=== PATIENT | female | born 1960 | race Caucasian/White ===

== ENCOUNTER 2024-03-25 13:41 | Inpatient (IN) | payer OTHER, SELFPAY ==
[2024-03-25] VITALS (23 sets, daily range): BP systolic 155–220; BP diastolic 56–134; PULSE 62–79; RESP 9–97; TEMP 36.6–37.1; O2SAT 94–100; BMI 28.3
--- NOTE | 2024-03-25 14:04 | XR_ITS ---
Examination: CT brain head without contrast. 2-D sagittal coronal reconstructions Date and time of exam:March 25, 2024 1548 hrs. Indications: Slurred speech onset confusion beginning 4 days ago CTDI: vol (mGy):50.8 DLP: (mGycm):1014 Technique: Multiple CT axial sections of the brain have been obtained, 5 mm slice thickness. Contrast has not been administered. 2-D sagittal, coronal reconstructions have been obtained Low dose protocols were performed. One or more of the following dose reduction techniques were used; automated exposure control, adjustment of the mA and/or KV according to patient size, use of iterative reconstruction technique. Findings: No significant ventricular enlargement. Bilateral small basal ganglia infarcts which may be old but clinical correlation advised Intra-axial or extra-axial hemorrhage density is not seen. No mass effect or midline shift Basal cisterns are not remarkable. Fourth ventricle is midline. Cranial vault intact. Impression: Negative for acute hemorrhage, mass effect or midline shift Bilateral small basal ganglia infarcts which may be old but clinical correlation advised Brain MRI MRA without contrast follow-up would best assess for acute ischemic change
--- NOTE | 2024-03-25 14:05 | EKG_ITS ---
[facility] (Formerly [facility]) Test Date: 2024-03-25 Pat Name: MARQUES SCHMID Department: Room: - Gender: Female Recreational Leader: : 1960 Requested By: Jerod Cote Order Number: [id number] Reading MD: Jerod Cote Measurements Intervals [place] Rate: 66 P: -67 NC: 149 QRS: -34 QRSD: 98 T: 70 QT: 393 QTc: 413 Interpretive Statements SINUS RHYTHM MARKED LEFT AXIS DEVIATION [QRS AXIS < -30] MODERATE VOLTAGE CRITERIA FOR LVH, CONSIDER NORMAL VARIANT [MEETS CRITERIA IN ONE OF: R(aVL), S(V1), R(V5), R(V5/V6)+S(V1)] POSSIBLE ANTERIOR MYOCARDIAL INFARCTION , OF INDETERMINATE AGE [30 ms Q WAVE IN V3/V4, OR R < 0.2 mV IN V4] No previous ECG available for comparison /store/S0/[id number].pdf
--- NOTE | 2024-03-25 14:07 | EDNOTE_ITS ---
ED General RME/HPI General Chief complaint: Altered Mental Status Stated complaint: AMS Time Seen by Provider: 03/25/24 14:01 Arrival date/time: 03/25/24 13:41 RME / HPI RME / HPI narrative: 63-year-old female patient with significant history of hypertension, CVA in the past, was brought in by EMS for evaluation regarding strokelike symptoms. Last well-known time was 4 days ago. Patient friend visited her and was noted to have certain words that are not coming out in her mouth,. Patient denies any headache denies any upper or lower extremity weakness. Patient is ambulatory. Review of Systems Review of Systems Narrative Review of Systems: Review of system reviewed and within normal limits except mentioned in HPI ED Exam Narrative Physical exam: VITAL SIGNS: Reviewed. GENERAL APPEARANCE: Alert and interactive, follows commands, no acute distress, + mild expressive aphasia HEAD AND FACE: Non-traumatic. ENT: PERRL, pink conjunctivitis, eyelid no trauma, Mucous membrane moist. NECK: Supple, nontender, no nuchal rigidity. CHEST: No tenderness, no crepitus, no paradoxical movement, no retractions. LUNGS: Clear, well ventilated, symmetric, no rales, no wheezing, no ronchi, no stridor, good breath sounds bilaterally. HEART: Regular rate, regular rhythm, no murmur, no gallops. ABDOMEN: Soft, positive bowel sounds, nondistended, no guarding, nontender, no rebound, no masses, RECTAL: Deferred. GENITAL: Deferred. NEUROLOGICAL: Gross motor function intact sensory function intact, Appropriate for age. MUSCULOSKELETAL: low back nontender, full range of motion. EXTREMITIES: Nontender, full range of motion. SKIN: Color pink, dry, no rash, no lacerations, no abrasions, no contusions. LYMPHATICS: Deferred. Course Quality Measures none Orders Category Date Time Status Bedside Blood Glucose NOW Care 03/25/24 14:05 Active COVID-19 Screening Questionnaire NOW Care 03/25/24 20:28 Active Neurology Manager NOW Care 03/25/24 14:05 Active Continuous Pulse Oximetry NOW Care 03/25/24 14:05 Completed Decision to Admit X1 Care 03/25/24 20:28 Active EKG (ED ONLY) *Do not use* NOW Care 03/25/24 14:05 Completed In and Out Catheter NEEDED Care 03/25/24 14:05 Active Insert IV NOW Care 03/25/24 14:05 Active NIH Stroke Scale now Care 03/25/24 14:05 Active NPO NOW Care 03/25/24 14:05 Active Nurse Swallow Screen x1 Care 03/25/24 14:05 Active Consult to Neurology / Tele-Neurology Routine Cons 03/25/24 14:05 Active Consult to Neurology / Tele-Neurology Stat Cons 03/25/24 20:[address] head/brain wo con Stat Exams 03/25/24 14:04 Completed EKG (ED Only) Stat Exams 03/25/24 14:05 Draft CBC Stat Lab 03/25/24 14:30 Completed Comprehensive Metabolic Panel Stat Lab 03/25/24 14:30 Completed Drug Screen,Urine Stat Lab 03/25/24 14:05 Ordered Magnesium Stat Lab 03/25/24 14:30 Completed Partial Thromboplastin Time Stat Lab 03/25/24 14:30 Completed Prothrombin Time with INR Stat Lab 03/25/24 14:30 Completed Troponin I Stat Lab 03/25/24 14:30 Completed Urinalysis Stat Lab 03/25/24 14:05 Ordered Urine Culture Stat Lab 03/25/24 14:05 Ordered Aspirin [Ecotrin] Med 03/25/24 20:24 Discontinued 81 mg PO X1 ONE Labetalol IV [Trandate IV] Med 03/25/24 18:43 Discontinued 20 mg IVP X1 ONE Ondansetron Inj [Zofran Inj] Med 03/25/24 14:04 Active 4 mg IV Q4HR PRN Oxygen Delivery NOW RT 03/25/24 14:05 Active Vital Signs Vital signs: Vital Signs Temperature 98.8 F 03/25/24 13:46 Pulse Rate 65 03/25/24 13:46 Respiratory Rate 17 03/25/24 13:46 Blood Pressure 165/74 H 03/25/24 13:46 Pulse Oximetry (%) 98 03/25/24 13:46 Oxygen Delivery Method Nasal Cannula 03/25/24 13:46 Oxygen Flow Rate 2 03/25/24 13:46 [facility] Patient data External records reviewed:: None Clinical information provided by:: patient Social determinants that could affect healthcare access:: none Patient has the following chronic illnesses:: Hypertension diabetes mellitus, CVA How is presenting disease/condition affected by chronic disease/condition?: e xacerbated by Evaluation data The following diagnostics were reviewed and interpreted by me:: lab results, radiology exam(s) and EKG tracing(s) Lab and/or radiology exams considered but not ordered:: None Interpretation Summary: EKG as interpreted by me showed normal sinus rhythm, ventricular rate of 68 bpm, no ST segment elevation depression noted. CT scan of the head showed Negative for acute hemorrhage, mass effect or midline shift Bilateral small basal ganglia infarcts which may be old but clinical correlation advised Brain MRI MRA without contrast follow-up would best assess for acute ischemic change Laboratory couple came back unremarkable. Medications Medications considered but not ordered:: None labetalol IV, aspirin Medication administrations:: Medication Administration History Ondansetron HCl (Ondansetron Inj 2 Mg/Ml Inj 2 Ml) 4 mg IV Q4HR PRN PRN Reason: NAUSEA OR VOMITING Stop: 04/24/24 14:03 Discontinued Medications Aspirin (Aspirin Ec 81 Mg Tabec) 81 mg PO X1 ONE Stop: 03/25/24 20:25 Labetalol HCl (Labetalol Inj 5 Mg/Ml Vial 20 Ml) 20 mg IVP X1 ONE Stop: 03/25/24 18:44 Last Admin: 03/25/24 18:48 Dose: 20 mg Documented By: MIGUEL Labetalol IV, Zofran, aspirin Consultations Consultation(s) initiated? (list below): Yes Consultation #1 (Physician, Specialty, Details): Dr Calhoun, thank you Dr Calhoun Diagnosis Differential Diagnosis ED Complaint MDM: Strokelike symptoms, CVA, expressive aphasia Most likely diagnosis given after review of the tests above:: Strokelike symptoms Admission Indicated Admission indicated?: indicated Explain why admission is indicated or not indicated:: Patient is to be admitted for stroke workup Admission Request Was there a request for admission?: Yes Admission Attestation Admission request attestation: Discussed case with [ Dr Verde] from Hospitalist service regarding admission. Discussed patients ED course, exam findings, labs, and radiology results. The Hospitalist [agrees,] to accept the patient for admission. Disposition Plan Disposition Plan: Admit Medical Decision Making MDM Narrative MDM Narrative: 63-year-old female patient with significant history of hypertension, CVA in the past, was brought in by EMS for evaluation regarding strokelike symptoms. Last well-known time was 4 days ago. Patient friend visited her and was noted to have certain words that are not coming out in her mouth,. Patient denies any headache denies any upper or lower extremity weakness. Patient is ambulatory. Laboratory workup came back unremarkable. CT scan of the head showed Negative for acute hemorrhage, mass effect or midline shift Bilateral small basal ganglia infarcts which may be old but clinical correlation advised Brain MRI MRA without contrast follow-up would best assess for acute ischemic change Plan of care discussed with the patient, who agrees to be admitted for stroke workup. I spoke with Dr Calhoun, neurologist on-call, who recommends aspirin 81 mg x 1 and admission for stroke workup. Differential Diagnosis Differential Diagnosis: Strokelike symptoms, CVA, expressive aphasia Lab Data 03/25/24 14:30 03/25/24 14:30 Labs: Lab Results 03/25/24 Range/Units 14:30 WBC 7.9 (3.6-11.0) Thou/mm3 RBC 3.57 L (4.00-5.20) Miln/mm3 Hgb 9.7 L (12.0-16.0) g/dL Hct 29.7 L (36.0-46.0) % MCV 83 (80-100) fL MCH 27.2 (25.0-35.0) pg MCHC 32.7 (31.0-37.0) g/dl RDW Std Deviation 39.0 (36.4-46.3) fL Plt Count 369 (140-440) Thou/mm3 Neut % (Auto) 81 H (37-80) % Lymph % (Auto) 8 L (10-50) % [place] % (Auto) 6 (0-12) % Eos % (Auto) 4 (0-10) % Baso % (Auto) 1 (0-2.5) % Neut # (Auto) 6.4 (1.8-7.7) Thou/mm3 Lymph # (Auto) 0.6 L (1.0-4.8) Thou/mm3 [place] # (Auto) 0.5 (0.0-0.8) Thou/mm3 Eos # (Auto) 0.3 (0.0-0.5) Thou/mm3 Baso # (Auto) 0.1 (0.0-0.2) Thou/mm3 Immature Gran # (Auto) 0.02 H (0.00-0.00) Thou/mm3 Absolute Nucleated RBC 0.00 (0.00-0.00) Thou/mm3 Immature Gran % 0 (0-0) % Nucleated RBC % 0 (0) /100 WBC PT 11.0 (9.0-12.2) Seconds INR 1.0 (0.9-1.3) APTT 29.1 (22.0-36.0) Seconds Sodium 137 (136-145) mMol/L Potassium 4.4 (3.4-5.1) mMol/L Chloride 103 (98-107) mMol/L Carbon Dioxide 25.7 (20.0-31.0) mMol/L Anion Gap 8 (7-16) BUN 38 H (9-23) mg/dL Creatinine 2.1 H (0.6-1.3) mg/dL Estim Creat Clear Calc Not Performed. eGFR 26 L (60 - ) See Note BUN/Creatinine Ratio 18 (12-20) Ratio Glucose 126 H (74-106) mg/dL Calculated Osmolality 284 (275-295) Calcium 9.6 (8.3-10.6) mg/dL Corrected Calcium 9.6 (8.5-10.1) mg/dL Magnesium 1.8 (1.6-2.6) mg/dL Total Bilirubin 0.5 (0.3-1.2) mg/dL AST 10 (0-34) U/L ALT 10 (10-49) U/L Alkaline Phosphatase 84 (46-116) U/L Troponin I < 0.020 (0.0-0.045) ng/mL Total Protein 7.8 (5.7-8.2) gm/dL Albumin 4.3 (3.4-4.8) gm/dL Globulin 3.5 (2.3-3.5) gm/dL Albumin/Globulin Ratio 1.2 (1.2-2.2) Discharge Plan Prescriptions/Referrals Referrals: No Primary/Family,Physician [Primary Care Provider] - In 1 week Problem List Clinical Impression: CVA (cerebral vascular accident) Patient/Caregiver Discharge Instructions Print Language: Burmese
[2024-03-25 14:46] LABS: Basophils # (Auto) 0.1 Thou/mm3 (0.0-0.2); Basophils % (Auto) 1 % (0-2.5); Eosinophils # (Auto) 0.3 Thou/mm3 (0.0-0.5); Eosinophils % (Auto) 4 % (0-10); Hematocrit 29.7 % (36.0-46.0); Hemoglobin 9.7 g/dL (12.0-16.0); Immature Granulocytes % (Auto) 0 % (0-0); Immature Granulocytes Auto 0.02 Thou/mm3 (0.00-0.00); Lymphocytes # (Auto) 0.6 Thou/mm3 (1.0-4.8); Lymphocytes % (Auto) 8 % (10-50); Mean Corpuscular HGB Conc 32.7 g/dl (31.0-37.0); Mean Corpuscular Hemoglobin 27.2 pg (25.0-35.0); Mean Corpuscular Volume 83 fL (80-100); Monocytes # (Auto) 0.5 Thou/mm3 (0.0-0.8); Monocytes % (Auto) 6 % (0-12); Neutrophils # (Auto) 6.4 Thou/mm3 (1.8-7.7); Neutrophils % (Auto) 81 % (37-80); Nucleated Red Blood Cell % 0 /100 WBC (0); Platelet Count 369 Thou/mm3 (140-440); Red Blood Count 3.57 Miln/mm3 (4.00-5.20); White Blood Count 7.9 Thou/mm3 (3.6-11.0)
[2024-03-25 14:57] LABS: Partial Thromboplastin Time 29.1 Seconds (22.0-36.0)
[2024-03-25 15:13] LABS: Alanine Aminotransferase 10 U/L (10-49); Albumin, Serum 4.3 gm/dL (3.4-4.8); Albumin/Globulin Ratio 1.2 (1.2-2.2); Alkaline Phosphatase 84 U/L (46-116); Anion Gap 8 (7-16); Aspartate Amino Transferase 10 U/L (0-34); BUN/Creatinine Ratio 18 Ratio (12-20); Bilirubin,Total 0.5 mg/dL (0.3-1.2); Blood Urea Nitrogen 38 mg/dL (9-23); Calcium 9.6 mg/dL (8.3-10.6); Calcium (Corrected) 9.6 mg/dL (8.5-10.1); Carbon Dioxide 25.7 mMol/L (20.0-31.0); Chloride 103 mMol/L (98-107); Creatinine (Component) 2.1 mg/dL (0.6-1.3); Globulin 3.5 gm/dL (2.3-3.5); Glucose 126 mg/dL (74-106); Magnesium 1.8 mg/dL (1.6-2.6); Osmolality,Calculated 284 (275-295); Potassium 4.4 mMol/L (3.4-5.1); Sodium 137 mMol/L (136-145); Total Protein 7.8 gm/dL (5.7-8.2); Troponin I < 0.020 ng/mL (0.0-0.045); eGFR 26 See Note
[2024-03-25] MEDS: LABETALOL INJ 5 MG/ML VIAL 20 ML 20 MG IVP (18:48)
[2024-03-25] MEDS: ASPIRIN EC 81 MG TABEC PO (21:07)
[2024-03-25 21:41] LABS: Collection Type, Urine Clean Catch
--- NOTE | 2024-03-25 21:42 | ECHO_ITS ---
Transthoracic Echo Report Ht (in): 65 Wt (lb): 170 Exam Location: Portable Status: Emergency Sales And Marketing Director: Sudha Abraham Indications: Procedure Performed: BP: 150 / 75 HR: 55 Rhythm: Sinus Technical Quality: Fair Contrast: Agitated Saline Total Dose (mL): MEASUREMENTS (Male / Female) Normal Values 2D ECHO LV Diastolic Diameter PLAX 5.2 cm 4.2 - 5.9 / 3.9 - 5.3 cm LV Systolic Diameter PLAX 3.8 cm IVS Diastolic Thickness 0.9 cm 0.6 - 1.0 / 0.6 - 0.9 cm LVPW Diastolic Thickness 1.1 cm 0.6 - 1.0 / 0.6 - 0.9 cm LV Relative Wall Thickness 0.4 LVOT Diameter 1.9 cm LA Volume Index 35.9 cm?/m? 16 - 28 cm?/m? Ascending Aorta Diameter 3.3 cm M-MODE Aortic Root Diameter MM 2.7 cm LA Systolic Diameter MM 3.9 cm LA Ao Ratio MM 1.4 AV Cusp Separation MM 1.8 cm DOPPLER AV Peak Velocity 202.0 cm/s AV Peak Gradient 16.3 mmHg AV Mean Gradient 10.0 mmHg AV Velocity Time Integral 49.2 cm LVOT Peak Velocity 105.0 cm/s LVOT Peak Gradient 4.4 mmHg LVOT Velocity Time Integral 27.0 cm LVOT Cardiac Index 2214.8 cm?/min?m? AV Area Cont Eq vti 1.6 cm? AV Area Cont Eq pk 1.5 cm? MV Peak Velocity 126.0 cm/s MV Peak Gradient 6.4 mmHg MV Mean Velocity 67.9 cm/s MV Mean Gradient 2.0 mmHg MV Area PHT 3.0 cm? MR Peak Velocity 368.0 cm/s MR Peak Gradient 54.2 mmHg Mitral E Point Velocity 103.0 cm/s Mitral A Point Velocity 87.8 cm/s Mitral E to A Ratio 1.2 LV E' Lateral Velocity 4.7 cm/s Mitral E to LV E' Lateral Ratio 22.0 LV E' Septal Velocity 5.0 cm/s Mitral E to LV E' Septal Ratio 20.6 FINDINGS Left Ventricle Mild LV dilatation. Normal wall thickness, systolic function with no obvious regional wall motion abnormalities. The ejection fraction is visually estimated at 50-55%. Right Ventricle The right ventricle is normal in size and systolic function. Left Atrium The left atrium is normal by two-dimensional, color flow and Doppler imaging with no structural abnormalities, no thrombus formation present. Right Atrium The right atrium is normal by two-dimensional imaging, color flow and Doppler imaging with no struct ural abnormalities, no thrombus formation present. Atrial Septum The interatrial septum appears normal with no evidence of a shunt. Aorta The aorta is normal by two-dimensional, color flow and Doppler interrogation. Mitral Valve The mitral valve is mildly MAC. There is mild mitral valve regurgitation. Aortic Valve The aortic valve is trileaflet. Mild sclerosis without stenosis. There is no significant aortic prisca ve regurgitation. Tricuspid Valve The tricuspid valve is normal by two-dimensional, color flow and Doppler interrogation. There is tra ce tricuspid valve regurgitation. Pulmonic Valve There is no significant pulmonic valve regurgitation. Vessels The pulmonary artery appears normal. The inferior vena cava pulmonary and hepatic veins appear aixa l. Pericardium The pericardium is normal by two-dimensional imaging. There is no significant pericardial effusion. CONCLUSIONS Negative bubble study. No evidence of PFO or ASD. Mild Left ventricle dilatation. Normal function. Estimated EF 50-55% Normal RV size and function. Mild MAC. Mild MR Mild AV sclerosis without stenosis Trace TR Sybil Segovia (Electronically Signed) Final Date: 28 March 2024 12:48
--- NOTE | 2024-03-25 21:53 | ESHP_ITS ---
Documentation for date of: 03/25/24 [facility] History of Present Illness History of present illness: The patient is a 63-year-old female with a past medical history of hypertension, diabetes, CVA who presented to the ED from home on 03/25/2024 after about 3 days of jumbled speech. Patient was in her usual state of health once about 3 days ago when she noticed that her words were not coming out right initially attributed to tiredness. However, people around her started noticing similar things and she presented to the ED today as it did not resolve. She denies headache, weakness in any other extremities, loss of sensation or numbness. She does endorse some blurriness in vision and states open told that she had diabetic retinopathy. Patient had a CVA in May, at the time had right-sided deficits and was hospitalized for about 4 days. Due to this, she lost her job and had no insurance and was not able to follow-up with physical therapy or any other doctor appointments in the last 7 months. Patient has not been on any medications in this period of time and only recently after moving getting new insurance new primary care in [place] that started her on medications for hypertension. Her only other complaint is of left neck ulcer that has been present for about 2 years she was recently evaluated for possible biopsy and dermatology referral. ED course: In the ED, patient was afebrile, hypertensive with SBP> 200, saturating 99% on room air. Head CT showed bilateral small basal ganglia infarcts, age indeterminate, recommended to follow-up with MRI/MRA. As her symptoms have been already 4 days, teleneuro was not consulted when the ED neurologist Dr Calhoun was consulted who recommended to start the patient on aspirin 81 mg and admitted for further workup. CBC had a WBC of 7.9 Hgb 9.7 and CMP was significant for BUN of 38 and creatinine 2.1, baseline unknown. Glucose was 126. The patient has been admitted for CVA workup/rule out. PMHx-as above PSHx-Nil Social history- neither smokes nor drinks or uses illicit drugs Review of Systems Review of Systems Narrative Review of Systems: GENERAL: Denies fevers/chills or diaphoresis. HEENT: Denies headache, admits blurriness in vision. Denies nasal discharge. NEURO: Denies unusual weakness or difficulty speaking. CARDIO: Denies chest pain or palpitations. PULM: Denies SOB, coughing, or wheezing. GI: Denies abdominal pain, N/V/C/D/reflux/gas, bright red blood per rectum or melena. Reports having BMs. URO: Denies burning/itching/pain/urinary changes. MSK/EXT/SKIN: Denies joint/skeletal/muscle pain, issues/changes in upper or lower extremities, itchiness, or superficial pain. PSYCH: Cooperative, pleasant mood & affect. Exam Vital Signs Temp Pulse Resp BP Pulse Ox O2 Del Method O2 Flow Rate 97.9 F 73 20 192/97 H 99 Room Air 2 03/25/24 18:18 03/25/24 21:01 03/25/24 21:01 03/25/24 21:01 03/25/24 21:01 03/25/24 18:18 03/25/24 13:46 Narrative Exam GENERAL: AAOX3 NEURO: Strength 5/5 in all extremities, no pronator drift no loss of sensation, proprioception. Reflexes normal, [id number] and [id number] preserved negative Babinski sign, no nystagmus normal gait. HEENT: Moist mucosa. Eyes open, symmetrical, & clear CARDIO: No chest pain on palpation. Heart RRR, no obvious murmurs PULM: No noted coughing/dyspnea. Lungs CTA B/L GI: Abdomen soft, nondistended, no pain on palpation. BSx4 URO/RESEARCH MANAGER:: No further abnormalities noted. SKIN/MSK/EXT: 4 x 6 cm nonhealing ulceration noted in left neck fold, no purulent drainage Results: Labs 03/25/24 14:30 03/25/24 14:30 Labs: Short CBC 03/25/24 Range/Units 14:30 WBC 7.9 (3.6-11.0) Thou/mm3 Hgb 9.7 L (12.0-16.0) g/dL Hct 29.7 L (36.0-46.0) % Plt Count 369 (140-440) Thou/mm3 BMP 03/25/24 14:30 Sodium 137 Potassium 4.4 Chloride 103 Carbon Dioxide 25.7 BUN 38 H Creatinine 2.1 H Glucose 126 H Calcium 9.6 Cardiac Enzymes 03/25/24 Range/Units 14:30 Troponin I < 0.020 (0.0-0.045) ng/mL Liver Function 12/21/24 Range/Units 14:30 Total Bilirubin 0.5 (0.3-1.2) mg/dL AST 10 (0-34) U/L ALT 10 (10-49) U/L Alkaline Phosphatase 84 (46-116) U/L Albumin 4.3 (3.4-4.8) gm/dL Quality Measures Quality Measures none Medications Home Medications and Allergies Home Medications ?Medication ?Instructions ?Recorded ?Confirmed ?Type amlodipine 10 mg tablet mg 03/26/24 History aspirin 81 mg tablet,delayed mg 03/26/24 History release lisinopril 20 mg tablet mg 03/26/24 History metoprolol tartrate 25 mg tablet mg 03/26/24 03/26/24 History Allergies Allergy/AdvReac Type Severity Reaction Status Date / Time No Known Allergies Allergy Verified 03/25/24 21:10 Visit Medications Acetaminophen (Acetaminophen 325 Mg Tablet) 650 mg PO Q6H PRN PRN Reason: Pain 1-3 or Fever >100.3 Stop: 04/24/24 21:37 Amlodipine Besylate (Amlodipine Besylate 5 Mg Tablet) 10 mg PO QDAY [facility] Stop: 04/25/24 08:59 Aspirin (Aspirin Ec 81 Mg Tabec) 81 mg PO QDAY [facility] Stop: 04/25/24 08:59 Sodium Chloride (Ns) 1,000 mls @ 80 mls/hr IV .[id number] ONE Stop: 03/26/24 10:14 Metoprolol Tartrate (Metoprolol Tartrate 25 Mg Tablet) 12.5 mg PO BID [facility] Stop: 04/24/24 21:59 Ondansetron HCl (Ondansetron Inj 2 Mg/Ml Inj 2 Ml) 4 mg IV Q4HR PRN PRN Reason: NAUSEA OR VOMITING Stop: 04/24/24 14:03 Sennosides (Senna Tablet) 1 tab PO QDAY [facility]; Protocol Stop: 04/25/24 08:59 Discontinued Medications Aspirin (Aspirin Ec 81 Mg Tabec) 81 mg PO X1 ONE Stop: 03/25/24 20:25 Last Admin: 03/25/24 21:07 Dose: 81 mg Labetalol HCl (Labetalol Inj 5 Mg/Ml Vial 20 Ml) 20 mg IVP X1 ONE Stop: 03/25/24 18:44 Last Admin: 03/25/24 18:48 Dose: 20 mg Assessment & Plan Assessment Summary: Patient is a 63-year-old female with a past medical history of hypertension, diabetes, CVA who presented to the ED from home on 03/25/2020 after about 3 days of jumbled speech. CT on admission shows bilateral small basal ganglia infarcts, age-indeterminate. #Acute CVA versus TIA #History of CVA #Hypertensive emergency versus urgency The patient presented with a 3-day history of jumbled speech, initially noticed only by her aunt and subsequently by people around. She denies any weakness in extremities, loss of sensation or numbness. Patient has had CVA in May at the time had right-sided deficits and was hospitalized for about 4 days. She also mentions that she had another 1 about a year ago but is unable to recall when exactly but was also hospitalized for 5 days in a different hospital. Patient has a history of hypertension and has not been on any medications for about 10 months as she had no insurance and was unable to follow-up with her primary care. She recently got a new primary care provider and was started on amlodipine, lisinopril and metoprolol. Blood pressure on admission was significantly elevated with SBP greater than 200. Head CT showed bilateral small basal ganglia infarct, age-indeterminate. EKG showed sinus rhythm. Based on last well-known, teleneuro was not consulted by neurologist Dr Calhoun was recommended to admit the patient for further workup and started on aspirin 81 mg. Plan: -Admit to telemetry -MRI stroke protocol -Continue aspirin 81 mg daily -Echocardiogram with bubble study -Hypertension management: Goal, 20% reduction worsening 4 hours. Resuming home amlodipine and metoprolol tartrate 12.5 mg twice daily. -Neurology consulted, appreciate recommendations -Physical therapy -TSH, lipid panel in a.m #History of diabetes Patient has a history of diabetes, last A1c unknown but takes insulin about 5 units daily. Has not had insulin for more than a week per patient. Blood work was on admission 126 Plan: -A1c -Sliding scale insulin -Hypoglycemic protocols in place -Blood glucose check AC #Acute kidney injury #Possible CKD secondary to diabetic nephropathy On admission, BUN was 38 and creatinine 2.1. Urinalysis positive for 2+ protein Patient does endorse reduced oral intake Plan: -Gentle IV fluids, maintenance at 80 cc/h -Avoid nephrotoxic medications -Renally dose all medications #Left neck ulcer Patient has an ulcer on the left side of her neck folds and states it has been present for about 2 years. Initially started as a blister which opened up and was a lot smaller but has progressively increased in size, painless, not draining. On her visit to the particular clinic recently, patient was evaluated for possible skin biopsy. Plan: -Wound care Health maintenance: Dispo: Tele Diet: Carb consistent low DVT: SCDs Rodriguez: None Lines: Peripheral Med Rec: Pending, f/u PT: Ordered Code: Full Case was discussed with attending physician, Dr Lexie Donahue MD PGY-1 Attending Provider Attestation/Addendum Face to face evaluation was performed by me. I have personally seen and examined the patient. I discussed the assessment and plan with the entire medicine team. I reviewed available medical records, imaging studies, laboratory results. I agree with the above subjective data, objective findings, assessment and plan except as corrected by me or noted below HTN emergency Likely ischemic CVA or TIA uncontrolled HTN Elevated Cr suspect WALLACE prerenal etiology but can not rule out ATN - symptoms going on for days now, not a candidate for tPA, neuro consulted, MRI brain pending. bring down BP by 20-25% is the goal, resume some of home meds. Monitor vitals and neuro status closely
[2024-03-25 21:57] LABS: Bilirubin,Urine Negative (Negative); Blood,Urine Negative (Negative); Clarity,Urine Clear (Clear/Hazy); Color,Urine Lt-Yellow (Lt Yel-Yel); Glucose, Urine Negative (Negative); Ketones,Urine Negative (Negative); Leukocyte Esterase,Urine Negative (Negative); Nitrite,Urine Negative (Negative); PH,Urine 6.5 (5.0-7.0); Protein,Urine 2+ (Neg - Trace); RBC,Urine 1 /hpf (0-3); Specific Gravity,Urine 1.014 (1.001-1.035); Squamous Epithelial Cell,Urine 1 /hpf (0-5); Urobilinogen,Urine Negative mg/dL (0.0-1.0); WBC,Urine 1 /hpf (0-5)
[2024-03-25 22:04] LABS: Amphetamine/Methamp Scrn,U Negative (Negative); Barbiturate Screen,Urine Negative (Negative); Benzodiazepines Screen,Urine Negative (Negative); Benzoylecgonine Screen, Ur Negative (Negative); Fentanyl Screen,Urine Negative (Negative); Opiate Screen,Urine Negative (Negative); THC Screen,Urine Negative (Negative)
[2024-03-25] MEDS: METOPROLOL TARTRATE 25 MG TABLET 12.5 MG PO (22:19)
[2024-03-25] MEDS: SODIUM CHLORIDE 0.9% 1000 ML 1,000 ML 80 ML IV (22:20)
--- NOTE | 2024-03-25 22:55 | PC.NURSE ---
REPORT GIVEN TO TATIANA MARTINEZ. ALL QUESTIONS ASKED AND ANSWERED. PATIENT TRANSFERRED TO FLOOR BY STAFF. NO DISTRESS NOTED UPON TRANSFER. PATIENT REMAINS ON ROOM AIR.
[2024-03-26] VITALS (12 sets, daily range): BP systolic 139–188; BP diastolic 73–101; PULSE 56–87; RESP 12–96; TEMP 36.1–36.4; O2SAT 95–98
[2024-03-26 00:17] LABS: Glucose Estimated Average 131 mg/dL (80-131); Hemoglobin A1C 6.2 % Hgb (4.8-6.0)
[2024-03-26 06:20] LABS: Alanine Aminotransferase 7 U/L (10-49); Albumin, Serum 3.7 gm/dL (3.4-4.8); Albumin/Globulin Ratio 1.2 (1.2-2.2); Alkaline Phosphatase 70 U/L (46-116); Anion Gap 9 (7-16); Aspartate Amino Transferase < 10 U/L (0-34); BUN/Creatinine Ratio 19 Ratio (12-20); Bilirubin,Total 0.5 mg/dL (0.3-1.2); Blood Urea Nitrogen 36 mg/dL (9-23); Calcium 9.1 mg/dL (8.3-10.6); Calcium (Corrected) 9.3 mg/dL (8.5-10.1); Carbon Dioxide 25.4 mMol/L (20.0-31.0); Cardiac Risk Estimate 5.9 RATIO (3.7-5.6); Chloride 105 mMol/L (98-107); Cholesterol 188 mg/dL (132-200); Creatinine (Component) 1.9 mg/dL (0.6-1.3); Estimated Creatinine Clearance 33.2 mL/min (>60); Globulin 3.1 gm/dL (2.3-3.5); Glucose 93 mg/dL (74-106); HDL Cholesterol 32 mg/dL (40-60); LDL Cholesterol,Calculated 130 mg/dL (0-130); Magnesium 1.7 mg/dL (1.6-2.6); Osmolality,Calculated 285 (275-295); Phosphorous 4.3 mg/dL (2.4-5.1); Sodium 139 mMol/L (136-145); Thyroid Stimulating Hormone 1.07 uIU/mL (0.55-4.78); Total Protein 6.8 gm/dL (5.7-8.2); Triglycerides 128 mg/dL (30-150); eGFR 29 See Note
[2024-03-26 07:21] LABS: Basophils % (Auto) 1 % (0-2.5); Eosinophils # (Auto) 0.3 Thou/mm3 (0.0-0.5); Eosinophils % (Auto) 6 % (0-10); Hematocrit 27.6 % (36.0-46.0); Immature Granulocytes % (Auto) 0 % (0-0); Immature Granulocytes Auto 0.02 Thou/mm3 (0.00-0.00); Lymphocytes # (Auto) 0.9 Thou/mm3 (1.0-4.8); Lymphocytes % (Auto) 15 % (10-50); Mean Corpuscular HGB Conc 32.6 g/dl (31.0-37.0); Mean Corpuscular Hemoglobin 27.8 pg (25.0-35.0); Mean Corpuscular Volume 85 fL (80-100); Monocytes # (Auto) 0.5 Thou/mm3 (0.0-0.8); Monocytes % (Auto) 9 % (0-12); Neutrophils # (Auto) 4.3 Thou/mm3 (1.8-7.7); Neutrophils % (Auto) 70 % (37-80); Nucleated Red Blood Cell % 0 /100 WBC (0); Platelet Count 326 Thou/mm3 (140-440); RDW Standard Deviation 39.5 fL (36.4-46.3); Red Blood Count 3.24 Miln/mm3 (4.00-5.20); White Blood Count 6.2 Thou/mm3 (3.6-11.0)
--- NOTE | 2024-03-26 08:10 | PD.RESPRO ---
Documentation for date of: 03/26/24 Subjective Subjective Interval history: No acute overnight events. Currently asymptomatic, speech fluent, no focal neurological deficit. Ambulating in the room independently without dizziness or lightheadedness. Denies fever, chills, headaches, chest pain, sob, cough, GI or urinary symptoms. Exam Vital Signs Temp Pulse Resp BP Pulse Ox O2 Del Method O2 Flow Rate 97.1 F 65 17 150/77 H 98 Room Air 2 03/26/24 07:59 03/26/24 07:59 03/26/24 07:59 03/26/24 07:59 03/26/24 07:59 03/26/24 07:59 03/25/24 13:46 Narrative Exam GENERAL: Normal appearing obese female, NAD HEENT: NCAT.?CALLIE. Oral mucosa is moist. Patent Nares NECK: Supple, nontender, no thyromegaly, no meningismus, no JVD, no step offs CHEST: Symmetrical, atraumatic, and with equal expansion, Nontender on palpation no deformity and no crepitus. CARDIOVASCULAR: RRR, no m/g/r LUNGS: CTAB, no w/r/r. Symmetrical chest rise. No intercostal subcostal retraction. ABDOMEN: Soft, flat, nontender. No guarding/rebound tenderness/masses. +BS EXTREMITIES: Nontender.? No edema/cyanosis.?Moves all 4 extremities well, with full ROM and good CSM. SKIN: Warm and dry, no jaundice/rashes. MSK: No lumbar or midline, no CVA, no paraspinal muscle spasm or tenderness. NEURO: Fluent speech. COUCH x4, CN II-XII grossly intact.?No focal neurologic deficits. PSYCHIATRIC: Normal mood and affect, cooperative, no SI or HI or hallucinations. Objective Labs 03/26/24 04:55 03/26/24 04:55 Labs: Laboratory Results - last 24 hr 03/25/24 03/25/24 03/25/24 14:30 21:17 21:19 WBC 7.9 RBC 3.57 L Hgb 9.7 L Hct 29.7 L MCV 83 MCH 27.2 MCHC 32.7 RDW Std Deviation 39.0 Plt Count 369 Neut % (Auto) 81 H Lymph % (Auto) 8 L Parker % (Auto) 6 Eos % (Auto) 4 Baso % (Auto) 1 Neut # (Auto) 6.4 Lymph # (Auto) 0.6 L [place] # (Auto) 0.5 Eos # (Auto) 0.3 Baso # (Auto) 0.1 Immature Gran # (Auto) 0.02 H Absolute Nucleated RBC 0.00 Immature Gran % 0 Nucleated RBC % 0 PT 11.0 INR 1.0 APTT 29.1 Sodium 137 Potassium 4.4 Chloride 103 Carbon Dioxide 25.7 Anion Gap 8 BUN 38 H Creatinine 2.1 H Estim Creat Clear Calc Not Performed. eGFR 26 L BUN/Creatinine Ratio [address]ucose [address] Glu mg/dL 131 Hemoglobin A1c 6.2 H Calculated Osmolality 284 Calcium 9.6 Corrected Calcium 9.6 Phosphorus Magnesium 1.8 Total Bilirubin 0.5 AST 10 ALT 10 Alkaline Phosphatase 84 Troponin I < 0.020 Total Protein 7.8 Albumin 4.3 Globulin 3.5 Albumin/Globulin Ratio 1.2 Triglycerides Cholesterol LDL Cholesterol, Calc HDL Cholesterol Cholesterol/HDL Ratio TSH Ur Collection Type Clean Catch Urine Color Lt-Yellow Urine Clarity Clear Urine pH 6.5 Ur Specific [place] 1.014 Urine Protein 2+ A Urine Glucose (UA) Negative Urine Ketones Negative Urine Blood Negative Urine Nitrite Negative Urine Bilirubin Negative Urine Urobilinogen (Auto) Negative Ur Leukocyte Esterase Negative Urine RBC 1 Urine WBC 1 Ur Squamous Epith Cells 1 Urine Bacteria None Urine Opiates Screen Negative Urine Fentanyl Screen Negative Ur Barbiturates Screen Negative U Amphetamin/Meth Scrn Negative U Benzodiazepines Scrn Negative U Cocaine Metab Screen Negative U Marijuana (THC) Screen Negative 03/26/24 04:55 WBC 6.2 RBC 3.24 L Hgb 9.0 L Hct 27.6 L MCV 85 MCH 27.8 MCHC 32.6 RDW Std Deviation 39.5 Plt Count 326 D Neut % (Auto) 70 Lymph % (Auto) 15 [place] % (Auto) 9 Eos % (Auto) 6 Baso % (Auto) 1 Neut # (Auto) 4.3 Lymph # (Auto) 0.9 L [place] # (Auto) 0.5 Eos # (Auto) 0.3 Baso # (Auto) 0.0 Immature Gran # (Auto) 0.02 H Absolute Nucleated RBC 0.00 Immature Gran % 0 Nucleated RBC % 0 PT INR APTT Sodium 139 Potassium 4.0 Chloride 105 Carbon Dioxide 25.4 Anion Gap 9 BUN 36 H Creatinine 1.9 H Estim Creat Clear Calc 33.2 L eGFR 29 L BUN/Creatinine Ratio [address] Glu mg/dL Hemoglobin A1c Calculated Osmolality 285 Calcium 9.1 Corrected Calcium 9.3 Phosphorus 4.3 Magnesium 1.7 Total Bilirubin 0.5 AST < 10 ALT 7 L Alkaline Phosphatase 70 Troponin I Total Protein 6.8 Albumin 3.7 D Globulin 3.1 Albumin/Globulin Ratio 1.2 Triglycerides 128 Cholesterol 188 LDL Cholesterol, Calc 130 HDL Cholesterol 32 L Cholesterol/HDL Ratio 5.9 H TSH 1.07 Ur Collection Type Urine Color Urine Clarity Urine pH Ur Specific [place] Urine Protein Urine Glucose (UA) Urine Ketones Urine Blood Urine Nitrite Urine Bilirubin Urine Urobilinogen (Auto) Ur Leukocyte Esterase Urine RBC Urine WBC Ur Squamous Epith Cells Urine Bacteria Urine Opiates Screen Urine Fentanyl Screen Ur Barbiturates Screen U Amphetamin/Meth Scrn U Benzodiazepines Scrn U Cocaine Metab Screen U Marijuana (THC) Screen Quality Measures Quality Measures none Assessment & Plan Assessment Current Active Medications: Generic Name Dose Route Start Last Admin Trade Name Freq PRN Reason Stop Dose Admin Acetaminophen 650 mg 03/25/24 21:38 Acetaminophen 325 Mg Tablet PO 04/24/24 21:37 Q6H PRN Pain 1-3 or Fever >100.3 Amlodipine Besylate 10 mg 03/26/24 09:00 Amlodipine Besylate 5 Mg Tablet PO 04/25/24 08:59 QDAY RUSLAN Aspirin 81 mg 03/26/24 09:00 Aspirin Ec 81 Mg Tabec PO 04/25/24 08:59 QDAY RUSLAN Dextrose 25 ml 03/25/24 22:07 Dextrose 50%-Water Inj 50 Ml Syringe IV 04/24/24 22:06 Q15MIN PRN BG 50-70 responsive npo pt Dextrose 50 ml 03/25/24 22:07 Dextrose 50%-Water Inj 50 Ml Syringe IV 04/24/24 22:06 Q15MIN PRN BG <50 OR BG <70 & pt unresponsive Glucagon 1 mg 03/25/24 22:07 Glucagon Inj 1 Mg Vial IM Q15MIN PRN BG <70, and no IV access Sodium Chloride 1,000 mls @ 80 mls/hr 03/25/24 21:45 03/25/24 22:20 Ns IV 03/26/24 10:14 80 mls/hr .[id number] ONE Administration Insulin Human Regular 0 unit 03/26/24 07:30 03/26/24 07:37 Insulin Hum Regular 1 Unit/0.01 Ml (Per Unit) SC 04/25/24 07:29 Not Given AC [facility] Protocol Metoprolol Tartrate 12.5 mg 03/25/24 22:00 03/25/24 22:19 Metoprolol Tartrate 25 Mg Tablet PO 04/24/24 21:59 12.5 mg BID [facility] Administration Ondansetron HCl 4 mg 03/25/24 14:04 Ondansetron Inj 2 Mg/Ml Inj 2 Ml IV 04/24/24 14:03 Q4HR PRN NAUSEA OR VOMITING Pharmacy Consult 1 each 03/26/24 00:17 Pharmacy To Consult Pneumovacc XX 04/25/24 00:16 PRN PRN CONSULT Pneumococcal Polyvalent Vaccine 0.5 ml 03/26/24 11:00 Pneumoc 20-Kathrine Conj-Dip Crm/Pf 0.5 Ml Syringe IMi 03/26/24 11:01 .ONCE ONE Sennosides 1 tab 03/26/24 09:00 Senna Tablet PO 04/25/24 08:59 QDAY [facility] Protocol Plan In summary: 63-year-old female PMHx of HTN, CVA, DM, presented with 3 days of jumbled speech. Admitted for acute CVA versus TIA. CTA showed bilateral small basal ganglia infarct of undetermined age. Currently on statin and ASPIRIN. Pending echocardiogram and MRI. Neurology, Dr. Calhoun following, appreciate recommendations. Patient overall improving, symptoms nearly resolved. Acute CVA versus TIA History of CVA Hypertensive emergency VS urgency (resolved) HTN, HLD Presenting with 3 days of jumbled without focal neurological. Hx of CVA in May with right-sided deficit, started on blood thinners in the hospital, but wasn't continued outpatient. Head CT bilateral small basal ganglia infarct undetermined age. EKG sinus rhythm. History of hypertension, recently started on AMLODIPINE, LISINOPRIL, METOPROLOL. Admission SBP 200, improved with current regimen, currently BP 150/77, HR 65. Neurology following, recommended ASPIRIN and MRI. LDL 130, HDL 32, cholesterol 188. A1c 6.2, TSH 1.07 ? Continue ASPIRIN 81 mg ? Continue AMLODIPINE 10 mg daily ? Continue METOPROLOL 12.5 mg BID ? Continue normal saline at 80 cc an hour ? Started ATORVASTATIN 80 mg daily ? Blood pressure goal 20% reduction in 24 hours ? Physical therapy ? Pending echocardiogram with bubble study ? Pending MRI stroke protocol History of diabetes A1c 6.2 this visit. GLUCOSE 91 today ? Accu-Cheks ? INSULIN sliding scale Acute kidney injury Possible CKD 2/2 diabetic nephropathy Likely dehydration. Admission BUN 38, CR 2.1 > 1.9 today. UA 2+ positive protein. Patient admits to reduced oral intake. ? On maintenance fluid 80 cc an hour ? Renally dose meds, avoid overdiuresis and NEPHROTOXINS Left neck ulcer Left side of the neck fold ulcer, chronic 2+ years which started as a blister that opened up and increase in size. Painless and nondraining. Has biopsy scheduled outpatient. ? Wound care for now ? Continue follow-up outpatient with PCP Health maintenance Diet: CHO consistent GI prophylaxis: Not indicated DVT prophylaxis: SCDs Antibiotics: Not indicated CODE STATUS: Full code Disposition: Pending neurology recommendations Patient case was discussed with attending, Dr. Fox Sanders MD and senior resident Dr. Padilla. Roro Landeros DO PGYI Attending Provider Attestation/Addendum I reviewed labs, imaging, EKG, home medications and prior available records. Face to face evaluation was performed by me. I have personally examined the patient and discussed assessment and plan with the IM team. I reviewed the resident note and agree with the plan with exceptions as below. CVA symptoms Small bilateral basal ganglia infarct, likely old Uncontrolled hypertension Continue aspirin and atorvastatin Follow-up brain MRI and echocardiogram with bubble Permissive hypertension until CVA is ruled out Evaluated by PT: No need for rehabilitation
[2024-03-26] MEDS: SENNA TABLET 1 TAB PO (08:29)
[2024-03-26] MEDS: Magnesium Sulfate 2 GM Ivpb 2 GM/50 ML BAG IV (08:29)
[2024-03-26] MEDS: amLODIPine BESYLATE 5 MG TABLET 10 MG PO (08:30)
[2024-03-26] MEDS: METOPROLOL TARTRATE 25 MG TABLET 12.5 MG PO (08:30)
[2024-03-26] MEDS: ASPIRIN EC 81 MG TABEC PO (08:30)
[2024-03-26] MEDS: SODIUM CHLORIDE 0.9% 1000 ML 1,000 ML 80 ML IV (10:56)
[2024-03-26] MEDS: INSULIN LISPRO (AdmeLOG) 1 UNIT/0.01 ML UNIT SC ×2 (11:24→20:02)
[2024-03-26] MEDS: PNEUMOC 20-VAL CONJ-DIP CRM/PF 0.5 ML SYRINGE IMi (11:26)
--- NOTE | 2024-03-26 13:31 | PC.PT ---
PT eval only. Patient is xI with bed mobility, transfers, and ambulation. She is at her PLOF. Patient is safe to ambulate in the hallway. RN notified.
--- NOTE | 2024-03-26 14:38 | PC.SS ---
This is 63-year-old, single, female who presented to the ED due to suffering from altered mental status. Patient appeared alert and oriented to self, place and situation. Patient was pleasant. Patient resides at [address] [place] [address]. Patient resides alone at home. Patient is independent with all ADLs, no DME use. Patient assigned her niece, Mai Marquez ([phone]) as her medical decision maker. Patient's PCP is Ileana Sterling in a clinic at [facility]. When medically clear, patient will return home; a friend will provide transportation. Discharge plan: home, friend will provide transportation. Net of kin: Mai Nolan niece Plan: patient is pending echocardiogram, MRI, and neurology consult.
--- NOTE | 2024-03-26 15:54 | PD.ADDPROG ---
Addendum Progress Note Addendum Date of report being addended: 03/27/24 Narrative: I reviewed labs, imaging, EKG, home medications and prior available records. Face to face evaluation was performed by me. I have personally examined the patient and discussed assessment and plan with the IM team. I reviewed the resident note and agree with the plan with exceptions as below. CVA symptoms Small bilateral basal ganglia infarct, likely old Uncontrolled hypertension CKD stage 4 Continue aspirin, Plavix, and atorvastatin Follow-up brain MRI and echocardiogram with bubble. MRI/MRA brain showed multiple acute infarcts left posterior temporal, parietal and left occipital lobe in addition to occlusions M1 segment left middle cerebral artery. Echocardiogram is pending. Resume home antihypertensive treatment. Monitor BP. Evaluated by PT: No need for rehabilitation Monitor kidney function. Avoid nephrotoxins. Renally dosed medications.
[2024-03-26] MEDS: ATORVASTATIN CALCIUM 20 MG TABLET 80 MG PO (20:03)
--- NOTE | 2024-03-26 20:51 | PC.LAC ---
Home Med list unable to complete, pt listed names of medications but does not know dosages or frequency. Called POC- Rossana Humphrey and she does not have acess to list in patients home. POC lives in [place], pt home is in [place]. Per POC, neighbor- Raiza caring for pt dogs has access to home, can try to get home med list from neighbor in AM. Raiza phone #[phone].
[2024-03-27] VITALS (11 sets, daily range): BP systolic 121–170; BP diastolic 54–107; PULSE 62–76; RESP 17–97; TEMP 36.1–36.3; O2SAT 95–98; BMI 34.2
--- NOTE | 2024-03-27 | XR_ITS ---
Examinations: MRI Brain without intravenous contrast. MRA brain without intravenous contrast. MRA carotids without intravenous contrast 3-D vascular reconstructions Date and time of exam: March 27, 2024 1036 hours INDICATIONS: Onset slurred speech and confusion beginning 5 days ago Technique: Multiple axial and sagittal images of the brain have been obtained MRA brain carotid images without contrast obtained, including 3-D postprocessing, vascular maximum intensity projection images Findings: [place] is not enlarged. The optic chiasm and infundibular stalk are not remarkable. Prepontine and interpeduncular cisterns are not enlarged. No localized enlargement of the medulla or loli. Fourth ventricle and cerebellar tonsils normal in position. Subacute hemorrhage is not seen. Fourth ventricle is midline. Mass in the cerebellopontine angle region is not evident. 7th and 8th nerve complexes exhibits symmetry. Globes are symmetrical with no retro-orbital mass. Increased white matter signal significant Diffusion-weighted images demonstrate abnormal foci restricted diffusion in the left posterior temporal parietal and left occipital lobe, the largest 11 mm Mass-effect upon the ventricular system is not identified. MRA carotid images degraded by patient motion. MRA brain images occlusions M1 segment left middle cerebral artery Impression: Multiple acute infarcts left posterior temporal, parietal and left occipital lobe Occlusions M1 segment left middle cerebral artery
[2024-03-27] MEDS: SODIUM CHLORIDE 0.9% 1000 ML 1,000 ML 80 ML IV ×2 (00:11→11:20)
[2024-03-27 06:00] LABS: Basophils # (Auto) 0.1 Thou/mm3 (0.0-0.2); Basophils % (Auto) 1 % (0-2.5); Eosinophils # (Auto) 0.3 Thou/mm3 (0.0-0.5); Eosinophils % (Auto) 6 % (0-10); Hematocrit 27.4 % (36.0-46.0); Hemoglobin 8.9 g/dL (12.0-16.0); Immature Granulocytes % (Auto) 0 % (0-0); Immature Granulocytes Auto 0.02 Thou/mm3 (0.00-0.00); Lymphocytes # (Auto) 0.8 Thou/mm3 (1.0-4.8); Lymphocytes % (Auto) 14 % (10-50); Mean Corpuscular HGB Conc 32.5 g/dl (31.0-37.0); Mean Corpuscular Hemoglobin 27.6 pg (25.0-35.0); Mean Corpuscular Volume 85 fL (80-100); Monocytes # (Auto) 0.5 Thou/mm3 (0.0-0.8); Monocytes % (Auto) 8 % (0-12); Neutrophils # (Auto) 4.1 Thou/mm3 (1.8-7.7); Neutrophils % (Auto) 71 % (37-80); Nucleated Red Blood Cell % 0 /100 WBC (0); Platelet Count 321 Thou/mm3 (140-440); RDW Standard Deviation 38.4 fL (36.4-46.3); Red Blood Count 3.23 Miln/mm3 (4.00-5.20); White Blood Count 5.7 Thou/mm3 (3.6-11.0)
[2024-03-27 06:22] LABS: Alanine Aminotransferase < 7 U/L (10-49); Albumin, Serum 3.5 gm/dL (3.4-4.8); Albumin/Globulin Ratio 1.1 (1.2-2.2); Alkaline Phosphatase 69 U/L (46-116); Anion Gap 8 (7-16); Aspartate Amino Transferase < 10 U/L (0-34); BUN/Creatinine Ratio 20 Ratio (12-20); Bilirubin,Total 0.3 mg/dL (0.3-1.2); Blood Urea Nitrogen 41 mg/dL (9-23); Calcium 9.2 mg/dL (8.3-10.6); Calcium (Corrected) 9.6 mg/dL (8.5-10.1); Carbon Dioxide 23.6 mMol/L (20.0-31.0); Chloride 108 mMol/L (98-107); Creatinine (Component) 2.1 mg/dL (0.6-1.3); Estimated Creatinine Clearance 30.9 mL/min (>60); Globulin 3.1 gm/dL (2.3-3.5); Glucose 114 mg/dL (74-106); Osmolality,Calculated 290 (275-295); Phosphorous 4.9 mg/dL (2.4-5.1); Sodium 140 mMol/L (136-145); Total Protein 6.6 gm/dL (5.7-8.2); eGFR 26 See Note
--- NOTE | 2024-03-27 09:10 | PC.NURSE ---
Per Dr. Padilla no permissive hypertension at this time. aware of pt. BP 170/74. states I will put orders in for medication.
[2024-03-27] MEDS: ASPIRIN EC 81 MG TABEC PO (09:17)
[2024-03-27] MEDS: amLODIPine BESYLATE 5 MG TABLET 10 MG PO (09:18)
[2024-03-27] MEDS: METOPROLOL SUCCINATE XL 25 MG TABCR 50 MG PO (09:50)
--- NOTE | 2024-03-27 09:56 | PC.NURSE ---
Per PT. Hernán pt. ambulated down to unit entrance and back on room air, oxygen saturation stayed between 90-95% Dr. lawson aware and states when I see PT notes we will most likely send patient home.
--- NOTE | 2024-03-27 13:58 | ESPR_ITS ---
<Statement entered by Mau Costa DO - 03/27/24 17:09> Senior attestation: Patient was examined and case was reviewed with team including attending physician. Note reviewed, I agree with most of its contents and agree with the patient's care. MRI revealed multiple acute infarcts left posterior temporal, parietal, and left occipital lobe, occlusions M1 segment left middle cerebral artery. Pending neurology recommendations and echo. Mau Costa DO PGY-3 Documentation for date of: 03/27/24 Subjective Subjective Interval history: Patient was seen and examined at bedside. No acute events overnight. Today patient is feeling better with no new focal deficits on physical exam. Denies any weakness or slurred speech. Patient stated that she has previous stroke in the past and was started on DAPT. However due to insurance issues/personal reasons has been not been able to take medication since past month. MRI showed multiple acute infarcts in left posterior temporal, parietal, left occipital lobe. Occlusions in the M1 segment of left MCA. Echo results pending. Recommendations from Dr. Calhoun pending. Continue aspirin 81 mg, atorvastatin 80 mg. After 24 hours of permissive hypertension today patient was restarted on home medication amlodipine 10 mg daily. Started metoprolol succinate 50 mg daily. Will hold home lisinopril as of now due to worsening WALLACE. Today creatinine has up trended to 2.1 post 80 cc maintenance fluid. Continue maintenance fluids and encourage oral intake. Review of systems otherwise negative except what is mentioned above. Exam Vital Signs Temp Pulse Resp BP Pulse Ox O2 Del Method O2 Flow Rate 96.9 F 76 17 148/96 H 98 Room Air 2 03/27/24 12:00 03/27/24 12:00 03/27/24 12:00 03/27/24 12:00 03/27/24 12:00 03/27/24 12:00 03/27/24 08:00 Narrative Exam General: Alert and oriented x3. No acute distress, cooperative Eyes: Pupils are equal and reactive to light bilaterally HEENT: Atraumatic, normocephalic. No JVD noted. Mucosa moist. Left side neck bandage. Cardiovascular: Normal S1 and S2. Regular rate and rhythm. No pitting edema Respiratory: Lungs are clear to auscultation bilaterally. No wheezing or crackles heard. Abdomen: Soft, nontender, not distended, normal bowel sounds. Skin: Warm to touch, dry, no rashes noted Musculoskeletal: No gross injuries. Able to move all 4 extremities. Neuro: Alert and oriented x3. No focal neuro deficits. Psych: Normal affect and mood Objective Labs 03/27/24 04:51 03/27/24 04:51 Labs: Laboratory Results - last 24 hr 03/27/24 04:51 WBC 5.7 RBC 3.23 L Hgb 8.9 L Hct 27.4 L MCV 85 MCH 27.6 MCHC 32.5 RDW Std Deviation 38.4 Plt Count 321 Neut % (Auto) 71 Lymph % (Auto) 14 [place] % (Auto) 8 Eos % (Auto) 6 Baso % (Auto) 1 Neut # (Auto) 4.1 Lymph # (Auto) 0.8 L [place] # (Auto) 0.5 Eos # (Auto) 0.3 Baso # (Auto) 0.1 Immature Gran # (Auto) 0.02 H Absolute Nucleated RBC 0.00 Immature Gran % 0 Nucleated RBC % 0 Sodium 140 Potassium 4.0 Chloride 108 H Carbon Dioxide 23.6 Anion Gap 8 BUN 41 H Creatinine 2.1 H Estim Creat Clear Calc 30.9 L eGFR 26 L BUN/Creatinine Ratio 20 Glucose 114 H Calculated Osmolality 290 Calcium 9.2 Corrected Calcium 9.6 Phosphorus 4.9 Magnesium 2.0 Total Bilirubin 0.3 AST < 10 ALT < 7 L Alkaline Phosphatase 69 Total Protein 6.6 Albumin 3.5 Globulin 3.1 Albumin/Globulin Ratio 1.1 L Quality Measures Quality Measures none Assessment & Plan Assessment Current Active Medications: Generic Name Dose Route Start Last Admin Trade Name Freq PRN Reason Stop Dose Admin Acetaminophen 650 mg 03/25/24 21:38 Acetaminophen 325 Mg Tablet PO 04/24/24 21:37 Q6H PRN Pain 1-3 or Fever >100.3 Amlodipine Besylate 10 mg 03/27/24 09:15 03/27/24 09:18 Amlodipine Besylate 5 Mg Tablet PO 04/26/24 09:14 10 mg QDAY RUSLAN Administration Aspirin 81 mg 03/26/24 09:00 03/27/24 09:17 Aspirin Ec 81 Mg Tabec PO 04/25/24 08:59 81 mg QDAY RUSLAN Administration Atorvastatin Calcium 80 mg 03/26/24 21:00 03/26/24 20:03 Atorvastatin Calcium 20 Mg Tablet PO 04/25/24 20:59 80 mg HS RUSLAN Administration Dextrose 50 ml 03/25/24 22:07 Dextrose 50%-Water Inj 50 Ml Syringe IV 04/24/24 22:06 Q15MIN PRN BG <50 OR BG <70 & pt unresponsive Glucagon 1 mg 03/25/24 22:07 Glucagon Inj 1 Mg Vial IM Q15MIN PRN BG <70, and no IV access Hydralazine HCl 10 mg 03/27/24 09:28 Hydralazine Inj 20 Mg/Ml Vial IV 04/26/24 09:27 Q4HR PRN SBP >165 Sodium Chloride 1,000 mls @ 80 mls/hr 03/26/24 10:24 03/27/24 11:20 Ns IV 04/25/24 10:23 80 mls/hr .[id number] RUSLAN Administration Insulin Human Lispro 0 unit 03/26/24 11:30 03/27/24 11:26 Insulin Lispro (Admelog) 1 Unit/0.01 Ml Unit SC 04/25/24 11:29 Not Given ACHS RUSLAN Protocol Metoprolol Succinate 50 mg 03/27/24 09:30 03/27/24 09:50 Metoprolol Succinate Xl 25 Mg Tabcr PO 04/26/24 09:29 50 mg QDAY RUSLAN Administration Ondansetron HCl 4 mg 03/25/24 14:04 Ondansetron Inj 2 Mg/Ml Inj 2 Ml IV 04/24/24 14:03 Q4HR PRN NAUSEA OR VOMITING Pharmacy Consult 1 each 03/26/24 00:17 Pharmacy To Consult Pneumovacc XX 04/25/24 00:16 PRN PRN CONSULT Sennosides 1 tab 03/26/24 09:00 03/27/24 09:18 Senna Tablet PO 04/25/24 08:59 Not Given QDAY RUSLAN Protocol Plan In summary: 63-year-old female PMHx of HTN, CVA, DM, presented with 3 days of jumbled speech. Admitted for acute CVA versus TIA. CTA showed bilateral small basal ganglia infarct of undetermined age. Currently on statin and ASPIRIN. Pending echocardiogram and MRI. Neurology, Dr. Calhoun following, appreciate recommendations. Patient overall improving, symptoms nearly resolved. Acute CVA versus TIA History of CVA Hypertensive emergency VS urgency (resolved) Hx HTN, HLD Presenting with 3 days of jumbled without focal neurological. Hx of CVA in May with right-sided deficit, started on blood thinners in the hospital, but wasn't continued outpatient. Head CT bilateral small basal ganglia infarct undetermined age. EKG sinus rhythm. History of hypertension, recently started on AMLODIPINE, LISINOPRIL, METOPROLOL. Admission SBP 200, improved with current regimen, currently BP 150/77, HR 65. Neurology following, recommended ASPIRIN and MRI. LDL 130, HDL 32, cholesterol 188. A1c 6.2, TSH 1.07 ? Continue ASPIRIN 81 mg ? Continue AMLODIPINE 10 mg daily ? Continue METOPROLOL succinate 50 mg daily ? Continue normal saline at 80 cc an hour ? Started ATORVASTATIN 80 mg daily ? Physical therapy ? Pending echocardiogram with bubble study ? MRI showed multiple acute infarcts in left posterior temporal, parietal, left occipital lobe. Occlusions in the M1 segment of left MCA. History of diabetes A1c 6.2 this visit. GLUCOSE 91 today ? Accu-Cheks ? INSULIN sliding scale Acute kidney injury Possible CKD 2/2 diabetic nephropathy Likely dehydration. Admission BUN 38, CR 2.1 > 1.9 today. UA 2+ positive protein. Patient admits to reduced oral intake. ? On maintenance fluid 80 cc an hour -Increase oral fluid intake with 2 to 3 L/day ? Renally dose meds, avoid overdiuresis and NEPHROTOXINS -Hold home lisinopril Left neck ulcer Left side of the neck fold ulcer, chronic 2+ years which started as a blister that opened up and increase in size. Painless and nondraining. Has biopsy scheduled outpatient. ? Wound care for now ? Continue follow-up outpatient with PCP Health maintenance Diet: CHO consistent GI prophylaxis: Not indicated DVT prophylaxis: SCDs Antibiotics: Not indicated CODE STATUS: Full code Disposition: Pending neurology recommendations Patient case was discussed with attending, Dr. Sanders and seniors /Dr. Padilla. Bhavani Griffiths, PGY1 L Ms Humphrey is a 63-year-old female past medical history of essential hypertension, CVA, type II loi-mvjoyto-aeoqnfetn diabetes mellitus, who presented with 3 days of slurred speech. Patient is admitted for stroke workup. Head CT and CTA showed bilateral small basal ganglia infarct of undetermined age. In-house neurology Dr. Calhoun is consulted, appreciate recommendations. Patient started on statin and ASPIRIN. MRI brain is remarkable for Multiple acute infarcts left posterior temporal, parietal and left occipital lobe, occlusions M1 segment left middle cerebral artery. Patient overall improving, NIHSS 0. Physical therapy evaluated the patient, as per evaluation she is independent and safe for discharge home. Pending echocardiogram and final neurology recommendations for discharge. Patient examined and case discussed with the team including attending physician. Note reviewed, I agree with the care plan as documented. - Smith Padilla MD, PGY 2 Attending Provider Attestation/Addendum I reviewed labs, imaging, EKG, home medications and prior available records. Face to face evaluation was performed by me. I have personally examined the patient and discussed assessment and plan with the IM team. I reviewed the resident note and agree with the plan with exceptions as below. CVA symptoms Small bilateral basal ganglia infarct, likely old Uncontrolled hypertension CKD stage 4 Continue aspirin, Plavix, and atorvastatin Follow-up brain MRI and echocardiogram with bubble. MRI/MRA brain showed multiple acute infarcts left posterior temporal, parietal and left occipital lobe in addition to occlusions M1 segment left middle cerebral artery. Echocardiogram is pending. Resume home antihypertensive treatment. Monitor BP. Evaluated by PT: No need for rehabilitation Monitor kidney function. Avoid nephrotoxins. Renally dosed medications.
--- NOTE | 2024-03-27 14:25 | PC.NURSE ---
Per Dr. Griffiths let bag that started at 1120 continue running until finished, and then hold off on IV fluids. New order DCd by provider.
--- NOTE | 2024-03-27 14:29 | PC.NURSE ---
aware of MRI report
[2024-03-27] MEDS: CLOPIDOGREL BISULFATE 75 MG TABLET PO (14:39)
[2024-03-27] MEDS: hydrALAZINE INJ 20 MG/ML VIAL 10 MG IV (16:55)
[2024-03-27] MEDS: ATORVASTATIN CALCIUM 20 MG TABLET 80 MG PO (20:58)
--- NOTE | 2024-03-27 23:20 | ESPR_ITS ---
Documentation for date of: 03/27/24 Subjective Subjective Interval history: Patient was seen in telemetry today. No new symptoms reported. Patient does not have any focal neurological deficit including weakness or paresthesias or speech disturbances. Tolerating oral diet well. Exam - Neurology Vital Signs Temp Pulse Resp BP Pulse Ox O2 Del Method O2 Flow Rate 97.1 F 62 20 146/107 H 95 Room Air 2 03/27/24 20:00 03/27/24 20:08 03/27/24 20:08 03/27/24 20:00 03/27/24 20:00 03/27/24 20:00 03/27/24 08:00 Narrative Exam GENERAL APPEARANCE: Well hydrated, well-nourished in no acute distress. HEENT: Normocephalic, atraumatic, extraocular movements intact. Pupils: Equal reacting to light and accommodation NECK: Supple, no JVD or bruits. CARDIOVASULAR: Heart: S1, S2 heard, regular without S3-S4 or murmur no rubs or gallops. LUNGS/CHEST: Clear to auscultation bilaterally. No rails, rhonchi, or wheezing. Normal inspection. ABDOMEN: Soft, nontender, with normal bowel sounds. No pulsatile masses. No rebound, rigidity, or guarding. Normal inspection and palpation. EXTREMITIES: Normal inspection and palpation. No edema, clubbing or cyanosis. SKIN: Warm and dry without rashes. Normal inspection. MUSCULOSKELETAL: No cervical, thoracic, lumbar or midline bony tenderness. Normal inspection. NEURO: Alert, awake and oriented x3. Cranial nerves: II through XII grossly intact. Speech and language: Normal with no dysarthria or dysphasia. Motor system: Tone and bulk: Normal: Strength: 5 out of 5 in all 4 extremities; No pronator drift noted. Deep tendon reflexes: 2+ bilaterally symmetrical. Plantar reflex: Downgoing bilaterally. Sensory system: Intact to all modalities of sensation bilaterally. Coordination: Intact to pipgtj-wexh-arler and lwvz-euer-ycun test bilaterally. No ataxia, no dysmetria, or dysdiadochokinesia noted. No intention tremors noted. Gait: Normal. Toe, heel, tandem walk all are normal. Romberg: Negative. No signs of meningeal irritation noted. PSYCHIATRIC: Normal mood and affect. Objective Labs 03/28/24 05:24 03/27/24 04:51 Labs: Laboratory Results - last 24 hr 03/27/24 04:51 WBC 5.7 RBC 3.23 L Hgb 8.9 L Hct 27.4 L MCV 85 MCH 27.6 MCHC 32.5 RDW Std Deviation 38.4 Plt Count 321 Neut % (Auto) 71 Lymph % (Auto) 14 [place] % (Auto) 8 Eos % (Auto) 6 Baso % (Auto) 1 Neut # (Auto) 4.1 Lymph # (Auto) 0.8 L [place] # (Auto) 0.5 Eos # (Auto) 0.3 Baso # (Auto) 0.1 Immature Gran # (Auto) 0.02 H Absolute Nucleated RBC 0.00 Immature Gran % 0 Nucleated RBC % 0 Sodium 140 Potassium 4.0 Chloride 108 H Carbon Dioxide 23.6 Anion Gap 8 BUN 41 H Creatinine 2.1 H Estim Creat Clear Calc 30.9 L eGFR 26 L BUN/Creatinine Ratio 20 Glucose 114 H Calculated Osmolality 290 Calcium 9.2 Corrected Calcium 9.6 Phosphorus 4.9 Magnesium 2.0 Total Bilirubin 0.3 AST < 10 ALT < 7 L Alkaline Phosphatase 69 Total Protein 6.6 Albumin 3.5 Globulin 3.1 Albumin/Globulin Ratio 1.1 L Assessment & Plan Assessment and plan (1) CVA (cerebral vascular accident): Status: Acute Assessment and plan: Fortunately patient does not have any focal neurological deficit MRI brain showed multiple acute infarcts left posterior temporal, parietal and left occipital lobe; MRA showed Occlusions M1 segment left middle cerebral artery. Continue with aspirin 81 mg, Plavix 75 mg and statin. Follow-up with echocardiogram (2) Hypertension: Status: Acute Assessment and plan: Continue with the home meds
[2024-03-28] VITALS (11 sets, daily range): BP systolic 143–174; BP diastolic 75–86; PULSE 55–68; RESP 18–24; TEMP 36.2–36.6; O2SAT 93–98; BMI 34.1
[2024-03-28 05:57] LABS: Basophils # (Auto) 0.1 Thou/mm3 (0.0-0.2); Basophils % (Auto) 1 % (0-2.5); Eosinophils # (Auto) 0.4 Thou/mm3 (0.0-0.5); Eosinophils % (Auto) 7 % (0-10); Hematocrit 30.7 % (36.0-46.0); Hemoglobin 9.8 g/dL (12.0-16.0); Immature Granulocytes % (Auto) 1 % (0-0); Immature Granulocytes Auto 0.03 Thou/mm3 (0.00-0.00); Lymphocytes # (Auto) 0.7 Thou/mm3 (1.0-4.8); Lymphocytes % (Auto) 11 % (10-50); Mean Corpuscular HGB Conc 31.9 g/dl (31.0-37.0); Mean Corpuscular Hemoglobin 26.9 pg (25.0-35.0); Mean Corpuscular Volume 84 fL (80-100); Monocytes # (Auto) 0.5 Thou/mm3 (0.0-0.8); Monocytes % (Auto) 8 % (0-12); Neutrophils # (Auto) 4.8 Thou/mm3 (1.8-7.7); Neutrophils % (Auto) 74 % (37-80); Nucleated Red Blood Cell % 0 /100 WBC (0); Platelet Count 343 Thou/mm3 (140-440); RDW Standard Deviation 38.5 fL (36.4-46.3); Red Blood Count 3.64 Miln/mm3 (4.00-5.20); White Blood Count 6.5 Thou/mm3 (3.6-11.0)
[2024-03-28 06:51] LABS: Alanine Aminotransferase 8 U/L (10-49); Albumin, Serum 4.1 gm/dL (3.4-4.8); Albumin/Globulin Ratio 1.2 (1.2-2.2); Alkaline Phosphatase 79 U/L (46-116); Anion Gap 9 (7-16); Aspartate Amino Transferase 11 U/L (0-34); BUN/Creatinine Ratio 19 Ratio (12-20); Bilirubin,Total 0.4 mg/dL (0.3-1.2); Blood Urea Nitrogen 39 mg/dL (9-23); Calcium 9.3 mg/dL (8.3-10.6); Calcium (Corrected) 9.3 mg/dL (8.5-10.1); Chloride 106 mMol/L (98-107); Creatinine (Component) 2.1 mg/dL (0.6-1.3); Estimated Creatinine Clearance 30.3 mL/min (>60); Globulin 3.3 gm/dL (2.3-3.5); Glucose 110 mg/dL (74-106); Magnesium 1.8 mg/dL (1.6-2.6); Osmolality,Calculated 286 (275-295); Phosphorous 4.4 mg/dL (2.4-5.1); Sodium 138 mMol/L (136-145); Total Protein 7.4 gm/dL (5.7-8.2); eGFR 26 See Note
[2024-03-28] MEDS: METOPROLOL SUCCINATE XL 25 MG TABCR 50 MG PO (07:53)
[2024-03-28] MEDS: amLODIPine BESYLATE 5 MG TABLET 10 MG PO (07:54)
[2024-03-28] MEDS: SENNA TABLET 1 TAB PO (07:54)
[2024-03-28] MEDS: CLOPIDOGREL BISULFATE 75 MG TABLET PO (07:54)
[2024-03-28] MEDS: ASPIRIN EC 81 MG TABEC PO (07:55)
--- NOTE | 2024-03-28 08:59 | PC.SS ---
Follow up note: Neurology consulted. It was noted that patient does not have any deficits. Patient worked with PT and was independent with ADL's. D/c plan is home.
[2024-03-28] MEDS: hydrALAZINE HCL 25 MG TABLET 100 MG PO (10:09)
--- NOTE | 2024-03-28 12:20 | XR_ITS ---
Examination: CT brain head without contrast. 2-D sagittal coronal reconstructions Date and time of exam:March 28, 2024 1227 hrs. Indications: Stroke alert, onset focal neurologic deficit beginning 6 hours ago CTDI: vol (mGy):54.9 DLP: (mGycm):1086 Technique: Multiple CT axial sections of the brain have been obtained, 5 mm slice thickness. Contrast has not been administered. 2-D sagittal, coronal reconstructions have been obtained Low dose protocols were performed. One or more of the following dose reduction techniques were used; automated exposure control, adjustment of the mA and/or KV according to patient size, use of iterative reconstruction technique. Findings: No significant ventricular enlargement. Small old infarct left basal ganglia and right basal ganglia Intra-axial or extra-axial hemorrhage density is not seen. No mass effect or midline shift Basal cisterns are not remarkable. Fourth ventricle is midline. Cranial vault intact. Impression: Negative for acute hemorrhage, mass effect or midline shift
--- NOTE | 2024-03-28 12:20 | XR_ITS ---
Examinations: MRI Brain without intravenous contrast. MRA brain without intravenous contrast. MRA carotids without intravenous contrast 3-D vascular reconstructions Date and time of exam: March 28, 2024 1544 hrs. Indications: Stroke alert today, onset aphasia weakness beginning 6 hours ago Technique: Multiple axial and sagittal images of the brain have been obtained MRA brain carotid images without contrast obtained, including 3-D postprocessing, vascular maximum intensity projection images Findings: [place] is not enlarged. The optic chiasm and infundibular stalk are not remarkable. Prepontine and interpeduncular cisterns are not enlarged. No localized enlargement of the medulla or loli. Fourth ventricle and cerebellar tonsils normal in position. Subacute hemorrhage is not seen. Fourth ventricle is midline. Mass in the cerebellopontine angle region is not evident. 7th and 8th nerve complexes exhibits symmetry. Globes are symmetrical with no retro-orbital mass. Increased white matter signal prominent Diffusion-weighted images again demonstrate acute infarcts in the mid and posterior left parietal lobe, the largest 12 mm Mass-effect upon the ventricular system is not identified. MRA carotid images by patient motion. MRA brain images occlusion M1 segment left middle cerebral artery and poor filling of left middle cerebral artery trifurcation vessels, significant irregularity right middle cerebral artery vessels Significant irregularity posterior cerebral branches with occlusion P2 segment left posterior cerebral artery Impression: No significant change multiple acute infarcts in the mid and posterior left parietal lobe, the largest 12 mm Occlusion M1 segment left middle cerebral artery with significant cerebral arterial sclerotic disease as above
--- NOTE | 2024-03-28 12:20 | EKG_ITS ---
[facility] Test Date: 2024-03-28 Pat Name: MARQUES SCHMID Department: Room: 58A Gender: Female Travel Specialist: ANITA : 1960 Requested By: Smith Padilla Order Number: [id number] Reading MD: Smith Padilla Measurements Intervals Warner Rate: 69 P: 35 MO: 169 QRS: -16 QRSD: 108 T: 70 QT: 417 QTc: 447 Interpretive Statements SINUS RHYTHM MODERATE VOLTAGE CRITERIA FOR LVH, CONSIDER NORMAL VARIANT [MEETS CRITERIA IN ONE OF: R(aVL), S(V1), R(V5), R(V5/V6)+S(V1)] NONSPECIFIC T-WAVE ABNORMALITY Compared to ECG 03/25/2024 15:20:32 T-wave abnormality now present Left-axis deviation no longer present Myocardial infarct finding no longer present /store/S0/[id number]/ecg/[id number].pdf
--- NOTE | 2024-03-28 12:35 | PC.NURSE ---
EKG MANAGER called for aphasia, weakness, stroke alert called, pt taken to CT at 1225
--- NOTE | 2024-03-28 13:18 | ESCONSULT_ITS ---
Tele Neuro Consultation Consultation Date 03/28/24 Most Recent Vital Signs Last Vital Signs Temp 97.2 F 03/28/24 12:00 Pulse 66 03/28/24 12:00 Resp 20 03/28/24 12:00 BP 143/79 H 03/28/24 12:00 Pulse Ox 98 03/28/24 12:00 O2 Del Method Room Air 03/28/24 12:00 O2 Flow Rate 2 03/27/24 08:00 Laboratory-Coagulation Panel PT 11.0 Seconds (9.0-12.2) 03/25/24 14:30 INR 1.0 (0.9-1.3) 03/25/24 14:30 APTT 29.1 Seconds (22.0-36.0) 03/25/24 14:30 Consultation Narrative [facility] Patient Name:???Carolina Humphrey Date of :???1960 Identification Number:??? Date of Service:???03/28/2024 12:22:07 Diagnosis:?I63.512 - Cerebrovascular accident (CVA) due to occlusion of left middle cerebral artery (HCC) Impression: ?63YOF with a PMHx of HTN, HLD, DM2, prior R hemispheric stroke, admitted 03/25 following 3 days of aphasia and found to have a L M1 MCA occlusion with multifocal distal MCA regions of diffusion restriction, for whom Neurology was consulted in setting of acute recurrence of aphasia and dysarthria. On exam, patient with clear expressive aphasia, initially global yet improving to a transcortical motor aphasia. At this time, out principal concern is that patient is perfusion dependent, and as a result of normalizing of her blood pressure, this resulted in a relative hypoperfusion to regions of the L MCA affected by the M1 occlusion. As such, for the time being, would benefit from liberalizing BP goal as well as starting her on the correct therapy for a severe ICAD. Our recommendations are outlined below. Recommendations: ? Stroke/Telemetry Floor ? Neuro Checks ? Bedside Swallow Eval ? DVT Prophylaxis ? IV Fluids, Normal Saline ? Head of Bed 30 Degrees ? Euglycemia and Avoid Hyperthermia (PRN Acetaminophen) ?Recommend increasing ASA to 325 for now alongside Plavix 75qD x 90 days as per [facility] protocol for sever ICAD ?BP goal 160-180 systolic for next 24 hrs; will give bolus IVF and hold antihypertensives for now ?HOLD 30deg or less; if symptoms recur would place HOB flat or slightly Trendelenburg for periods of 15-30min every 4 hrs ?Q2 neurol checks and vitals Sign Out: ? Discussed with Primary Attending Advanced Imaging: Advanced Imaging Deferred because: Does not meet criteria due to being out of the 24-hour window for thrombectomy Metrics: Last Known Well: 03/28/2024 12:15:00 Dispatch Time: 03/28/2024 12:22:06 Initial Response Time: 03/28/2024 12:24:30Symptoms: Slurred speech, word finding difficulty. Initial patient interaction: 03/28/2024 12:28:40 NIHSS Assessment Completed: 03/28/2024 12:33:15Patient is not a candidate for Thrombolytic. Thrombolytic Medical Decision: 03/28/2024 12:33:16Patient was not deemed candidate for Thrombolytic because of following reasons: Significant head trauma or stroke in previous 3 months . I personally Reviewed the CT Head and it Showed no blood products or large core infarct, with bilateral subcortical hypodensities c/w subacute to chronic ischemic strokes. Primary Provider Notified of Diagnostic Impression and Management Plan on: 03/28/2024 13:00:00 Spoke With: Dr Padilla/electronic calibration technician IM Resident Able to Reach 03/28/2024 13:00:00 History of Present Illness:Patient is a 63 year old Female. Inpatient stroke alert was called for symptoms of Slurred speech, word finding difficulty. 63YOF with a PMHx of HTN, HLD, DM2, previous R BG stroke with no residual deficits, who was admitted on 03/25 in setting of 3 days of word finding difficulties and jumbled speech, for whom Neurology was consulted in setting of recurrence of speech difficulty and slurred speech. Per chart, patient admitted 03/25 after appx 72 hours of jumbled speech. CTH was noncontributory, yet MRI showed multiple regions of acute to subacute stroke along the L MCA territory, as well as a complete occlusion of the L M1 MCA. Patient with resolution of symptoms with plan to discharge today; however, at appx 1215 she had notable recurrence of slurred speech followed by significant word finding difficulty. Patient denies any focal weakness or sensory change at this time. Of note, BP parameters were tightened today with goal BP<140/90. Past Medical History: ?Hypertension ?Diabetes Mellitus ?Hyperlipidemia ?Stroke ?There is no history of Atrial Fibrillation Medications: No Anticoagulant use? Antiplatelet use:?Yes?ASA81, Plavix 75 Reviewed EMR for current medications Allergies:? Reviewed Social History: Drug Use: No Family History: There is no family history of premature cerebrovascular disease pertinent to this consultation ROS : 14 Points Review of Systems was performed and was negative except mentioned in HPI. Past Surgical History: There Is No Surgical History Contributory To Today?s Visit Examination: BP(143/79),?Pulse(66), 1A: Level of Consciousness - Alert; keenly responsive?+ 0 1B: Ask Month and Age - Both Questions Right?+ 0 1C: Blink Eyes & Squeeze Hands - Performs Both Tasks?+ 0 2: Test Horizontal Extraocular Movements - Normal?+ 0 3: Test Visual Dum[place] - No Visual Loss?+ 0 4: Test Facial Palsy (Use Grimace if Obtunded) - Normal symmetry?+ 0 5A: Test Left Arm Motor Drift - No Drift for 10 Seconds?+ 0 5B: Test Right Arm Motor Drift - No Drift for 10 Seconds?+ 0 6A: Test Left Leg Motor Drift - No Drift for 5 Seconds?+ 0 6B: Test Right Leg Motor Drift - No Drift for 5 Seconds?+ 0 7: Test Limb Ataxia (FNF/Heel-Hayes) - No Ataxia?+ 0 8: Test Sensation - Normal; No sensory loss?+ 0 9: Test Language/Aphasia - Severe Aphasia: Fragmentary Expression, Inference Needed, Cannot Identify Materials?+ 2 10: Test Dysarthria - Normal?+ 0 11: Test Extinction/Inattention - No abnormality?+ 0 NIHSS Score:?2 NIHSS Free Text :?Significant expressive aphasia with semantic paraphasias as well as increased paucity of speech Pre-Morbid Modified [place] Scale:2 Points = Slight disability; unable to carry out all previous activities, but able to look after own affairs without assistance Spoke with :?Dr Padilla/electronic calibration technician IM Resident This consult was conducted in real time using interactive audio and video technology. Patient was informed of the technology being used for this visit and agreed to proceed. Patient located in hospital and provider located at home/office setting. Patient is being evaluated for possible acute neurologic impairment and high probability of imminent or life-threatening deterioration. I spent total of 25 minutes providing care to this patient, including time for face to face visit via telemedicine, review of medical records, imaging studies and discussion of findings with providers, the patient and/or family. Dr Shade [place] [facility] For Inpatient follow-up with [facility] physician please call [facility] at . As we are not an outpatient service for any post hospital kwaku sheets needs please contact the hospital for assistance. If you have any questions for the [facility] physicians or need to reconsult for clinical or diagnostic changes please contact us via [facility] at .
[2024-03-28] MEDS: SODIUM CHLORIDE 0.9% 1000 ML 1,000 ML 999 ML IV (13:26)
[2024-03-28] MEDS: ASPIRIN 81 MG CHEW 243 MG PO (13:40)
--- NOTE | 2024-03-28 13:47 | ESPR_ITS ---
Documentation for date of: 03/28/24 Subjective Subjective Interval history: Patient was seen and examined at bedside this morning. No acute events overnight. At time of bedside rounding patient was at baseline with no new focal neurologic deficits, no weakness, no aphasia. After 24 hours of permissive hypertension, patient was started on home medications amlodipine 10 mg p.o. daily and hydralazine 100 mg p.o. twice daily. Pending echo, patient was anticipated for discharge. However at 12:15 PM, rapid response was called due to new onset aphasia. At bedside, oxygen saturation normal limits, blood pressure systolic 140s, bedside glucose 100. Stroke protocol was called and patient was taken to imaging for CT. No slurred speech. Teleneuro was consulted--recommendations include starting 325 aspirin and 75 mg Plavix daily for 90 days. Allow for permissive hypertension for goal of systolic 160?180s. Head of bed elevation greater than 30. Patient received 1 L bolus fluids given by teleneuro. As of right now patient not a candidate for thrombolytics. Echo negative for PFO. Will continue to monitor. Per nursing,? Labs, telemetry, and vitals were reviewed.?No further complaints at this time. Review of systems otherwise negative except what is mentioned above. Exam Vital Signs Temp Pulse Resp BP Pulse Ox O2 Del Method O2 Flow Rate 97.2 F 66 20 143/79 H 98 Room Air 2 03/28/24 12:00 03/28/24 12:00 03/28/24 12:03/28/24 12:00 03/28/24 12:00 03/28/24 12:00 03/27/24 08:00 Narrative Exam General: Alert and oriented x3. No acute distress, cooperative Eyes: Pupils are equal and reactive to light bilaterally HEENT: Atraumatic, normocephalic. No JVD noted. Mucosa moist. Left side neck bandage. Cardiovascular: Normal S1 and S2. Regular rate and rhythm. No pitting edema Respiratory: Lungs are clear to auscultation bilaterally. No wheezing or crackles heard. Abdomen: Soft, nontender, not distended, normal bowel sounds. Skin: Warm to touch, dry, no rashes noted Musculoskeletal: No gross injuries. Able to move all 4 extremities. Neuro: global aphasia, no other focal neuro deficits, normal movement and strenght in U/LE Psych: Normal affect and mood Objective Labs 03/29/24 05:00 03/29/24 04:34 Labs: Laboratory Results - last 24 hr 03/28/24 05:24 WBC 6.5 RBC 3.64 L Hgb 9.8 L Hct 30.7 L MCV 84 MCH 26.9 MCHC 31.9 RDW Std Deviation 38.5 Plt Count 343 Neut % (Auto) 74 Lymph % (Auto) 11 [place] % (Auto) 8 Eos % (Auto) 7 Baso % (Auto) 1 Neut # (Auto) 4.8 Lymph # (Auto) 0.7 L [place] # (Auto) 0.5 Eos # (Auto) 0.4 Baso # (Auto) 0.1 Immature Gran # (Auto) 0.03 H Absolute Nucleated RBC 0.00 Immature Gran % 1 H Nucleated RBC % 0 Sodium 138 Potassium 4.0 Chloride 106 Carbon Dioxide 23.0 Anion Gap 9 BUN 39 H Creatinine 2.1 H Estim Creat Clear Calc 30.3 L eGFR 26 L BUN/Creatinine Ratio 19 Glucose 110 H Calculated Osmolality 286 Calcium 9.3 Corrected Calcium 9.3 Phosphorus 4.4 Magnesium 1.8 Total Bilirubin 0.4 AST 11 ALT 8 L Alkaline Phosphatase 79 Total Protein 7.4 Albumin 4.1 D Globulin 3.3 Albumin/Globulin Ratio 1.2 Quality Measures Quality Measures none Assessment & Plan Assessment Current Active Medications: Generic Name Dose Route Start Last Admin Trade Name Freq PRN Reason Stop Dose Admin Acetaminophen 650 mg 03/25/24 21:38 Acetaminophen 325 Mg Tablet PO 04/24/24 21:37 Q6H PRN Pain 1-3 or Fever >100.3 Aspirin 81 mg 03/26/24 09:00 03/28/24 07:55 Aspirin Ec 81 Mg Tabec PO 04/25/24 08:59 81 mg QDAY RUSLAN Administration Atorvastatin Calcium 80 mg 03/26/24 21:00 03/27/24 20:58 Atorvastatin Calcium 20 Mg Tablet PO 04/25/24 20:59 80 mg HS RUSLAN Administration Clopidogrel Bisulfate 75 mg 03/27/24 14:30 03/28/24 07:54 Clopidogrel Bisulfate 75 Mg Tablet PO 04/26/24 14:29 75 mg QDAY RUSLAN Administration Dextrose 50 ml 03/25/24 22:07 Dextrose 50%-Water Inj 50 Ml Syringe IV 04/24/24 22:06 Q15MIN PRN BG <50 OR BG <70 & pt unresponsive Glucagon 1 mg 03/25/24 22:07 Glucagon Inj 1 Mg Vial IM Q15MIN PRN BG <70, and no IV access Sodium Chloride 1,000 mls @ 999 mls/hr 03/28/24 13:07 03/28/24 13:26 Ns IV 03/28/24 14:07 999 mls/hr .Q1H1M ONE Administration Sodium Chloride 1,000 mls @ 80 mls/hr 03/28/24 13:07 Ns IV 03/29/24 01:36 .[id number] ONE Insulin Human Lispro 0 unit 03/26/24 11:30 03/28/24 12:42 Insulin Lispro (Admelog) 1 Unit/0.01 Ml Unit SC 04/25/24 11:29 Not Given ACHS [facility] Protocol Ondansetron HCl 4 mg 03/25/24 14:04 Ondansetron Inj 2 Mg/Ml Inj 2 Ml IV 04/24/24 14:03 Q4HR PRN NAUSEA OR VOMITING Pharmacy Consult 1 each 03/26/24 00:17 Pharmacy To Consult Pneumovacc XX 04/25/24 00:16 PRN PRN CONSULT Sennosides 1 tab 03/26/24 09:00 03/28/24 07:54 Senna Tablet PO 04/25/24 08:59 1 tab QDAY [facility] Administration Protocol Plan In summary: 63-year-old female PMHx of HTN, CVA, DM, presented with 3 days of jumbled speech. Admitted for acute CVA versus TIA. CTA showed bilateral small basal ganglia infarct of undetermined age. Currently on statin and ASPIRIN. Pending echocardiogram and MRI. Neurology, Dr. Calhoun following, appreciate recommendations. Patient overall improving, symptoms nearly resolved. #CVA #History of CVA #Hypertensive emergency VS urgency (resolved) #Hx HTN, HLD Presenting with 3 days of jumbled without focal neurological. Hx of CVA in May with right-sided deficit, started on blood thinners in the hospital, but wasn't continued outpatient. Head CT bilateral small basal ganglia infarct undetermined age. EKG sinus rhythm. History of hypertension, recently started on AMLODIPINE, LISINOPRIL, METOPROLOL. Admission SBP 200, improved with current regimen, currently BP 150/77, HR 65. Neurology following, recommended ASPIRIN and MRI. LDL 130, HDL 32, cholesterol 188. A1c 6.2, TSH 1.07 ? Review telemetry neurorecommendations include increasing aspirin to 325 mg daily + Plavix 75 mg daily for 90 days -Hold all blood pressure medication for permissive hypertension -Goal SBP 160?180 -Telemetry neuro gave 1 L bolus fluids to increase MAP ? Continue ATORVASTATIN 80 mg daily ? Physical therapy -Speech therapy ?Echo with bubble study negative for PFO ? MRI showed multiple acute infarcts in left posterior temporal, parietal, left occipital lobe. Occlusions in the M1 segment of left MCA. #History of diabetes A1c 6.2 this visit. GLUCOSE 91 today ? Accu-Cheks ? INSULIN sliding scale #Acute kidney injury #Possible CKD 2/2 diabetic nephropathy Likely dehydration. Admission BUN 38, CR 2.1 > 1.9 today. UA 2+ positive protein. Patient admits to reduced oral intake. ?Follow-up with nephrology outpatient -Increase oral fluid intake with 2 to 3 L/day ? Renally dose meds, avoid overdiuresis and NEPHROTOXINS -Hold home lisinopril until evaluation by nephrology # Normocytic anemia Hb 9.8, MCV 88. -Follow-up outpatient for workup of anemia -Ferrous sulfate 325 daily #Left neck ulcer Left side of the neck fold ulcer, chronic 2+ years which started as a blister that opened up and increase in size. Painless and nondraining. Has biopsy scheduled outpatient. ? Wound care for now ? Continue follow-up outpatient with PCP Health maintenance Diet: CHO consistent GI prophylaxis: Not indicated DVT prophylaxis: SCDs Antibiotics: Not indicated CODE STATUS: Full code Disposition: CVA workup Patient case was discussed with attending, Dr. Medina and senior Dr. Padilla. Bhavani Griffiths, PGY1 L Ms Humphrey is a 63 year old female with a PMHx of HTN, HLD, DM2, prior RT hemispheric stroke, who was admitted 03/25 following for new onset aphasia. She was found to have a LT M1 MCA occlusion with multifocal distal MCA regions of diffusion restriction. Per Neurology recommendations, patient started on ASA, plavix and statin therapy. She initially had improvement of her transcortical motor aphasia, and was scheduled to be discharged today, however, at appx 12:15 PM she had notable recurrence of slurred speech followed by significant word finding difficulty, no focal weakness or sensory change noted. Tele-neurology was consulted, as per recommendations, normalizing of her blood pressure resulted in a relative hypoperfusion to regions of the LT MCA affected by the M1 occlusion. PLAN: We will continue with liberalized BP goal 160-180 systolic for next 24 hrs, will give bolus IVF and hold antihypertensives for now. Will also increase ASA to 325 for now alongside Plavix 75qD x 90 days as per [facility] protocol for sever ICAD. If symptoms recur would place HOB flat or slightly Trendelenburg for periods of 15-30min every 4 hrs. Pending in house neurology recommendations. Patient examined and case discussed with the team including attending physician. Note reviewed, I agree with the care plan as documented. - Smith Padilla MD, PGY 2 Attending Provider Attestation/Addendum I have examined the patient, reviewed labs and imaging findings, discussed the case with the resident(s), and reviewed entered orders. I agree with the plan of care as outlined in this note, with these additional summaries/recommendations: Patient seen at bedside. No acute overnight events. Patient originally admitted on 03/25 for acute CVA and found to have multiple acute infract's left posterior, temporal, parietal and left occipital lobe with occlusions M1 segment left cerebral artery. Unfortunately today 03/28 patient had rapid response for return of aphasia and concern for recurrent CVA. Stroke alert called. Teleneurology consulted. Teleneurology recommends aspirin 325 mg p.o. daily and Plavix 75 mg p.o. daily for 90 days for severe intracranial arthrosclerotic disease. Teleneurology also recommends SBP goal of 160-180 for the next 24 hours as tighter blood pressure control may have contributed to patient's symptoms. If symptoms return we will consider placing patient in reverse temporary position. NIH SS score currently 2. Patient started on fluids and hold all antihypertensives. Continue high intensity statin. Repeat hematology and chemistry panel in AM. Dr. Medina
[2024-03-28] MEDS: SODIUM CHLORIDE 0.9% 1000 ML 1,000 ML 80 ML IV (15:28)
[2024-03-28] MEDS: ATORVASTATIN CALCIUM 20 MG TABLET 80 MG PO (20:04)
[2024-03-28] MEDS: INSULIN LISPRO (AdmeLOG) 1 UNIT/0.01 ML UNIT SC (20:04)
--- NOTE | 2024-03-28 23:56 | PD.VPROG1 ---
Telemedicine visit statement This visit was conducted with the use of interactive audio and video telecommunications system that permits real time communication between the patient and the provider. Patient's verbal consent for virtual visit was obtained on 03/28/24 at 2356. Documentation for date of: 03/28/24 Virtual exam Vital Signs Temp Pulse Resp BP Pulse Ox O2 Del Method O2 Flow Rate 97.8 F 67 19 166/84 H 95 Room Air 2 03/28/24 20:00 03/28/24 20:00 03/28/24 20:00 03/28/24 20:00 03/28/24 20:00 03/28/24 20:00 03/27/24 08:00 Objective Labs 03/28/24 05:24 03/28/24 05:24 Labs: Laboratory Results - last 24 hr 03/28/24 05:24 WBC 6.5 RBC 3.64 L Hgb 9.8 L Hct 30.7 L MCV 84 MCH 26.9 MCHC 31.9 RDW Std Deviation 38.5 Plt Count 343 Neut % (Auto) 74 Lymph % (Auto) 11 [place] % (Auto) 8 Eos % (Auto) 7 Baso % (Auto) 1 Neut # (Auto) 4.8 Lymph # (Auto) 0.7 L [place] # (Auto) 0.5 Eos # (Auto) 0.4 Baso # (Auto) 0.1 Immature Gran # (Auto) 0.03 H Absolute Nucleated RBC 0.00 Immature Gran % 1 H Nucleated RBC % 0 Sodium 138 Potassium 4.0 Chloride 106 Carbon Dioxide 23.0 Anion Gap 9 BUN 39 H Creatinine 2.1 H Estim Creat Clear Calc 30.3 L eGFR 26 L BUN/Creatinine Ratio 19 Glucose 110 H Calculated Osmolality 286 Calcium 9.3 Corrected Calcium 9.3 Phosphorus 4.4 Magnesium 1.8 Total Bilirubin 0.4 AST 11 ALT 8 L Alkaline Phosphatase 79 Total Protein 7.4 Albumin 4.1 D Globulin 3.3 Albumin/Globulin Ratio 1.2
[2024-03-29] VITALS (9 sets, daily range): BP systolic 154–174; BP diastolic 69–94; PULSE 59–78; RESP 17–21; TEMP 36.1–36.6; O2SAT 94–97; BMI 33.6
[2024-03-29 06:00] LABS: Basophils # (Auto) 0.1 Thou/mm3 (0.0-0.2); Basophils % (Auto) 1 % (0-2.5); Eosinophils # (Auto) 0.5 Thou/mm3 (0.0-0.5); Eosinophils % (Auto) 7 % (0-10); Hematocrit 29.2 % (36.0-46.0); Hemoglobin 9.4 g/dL (12.0-16.0); Immature Granulocytes % (Auto) 0 % (0-0); Immature Granulocytes Auto 0.03 Thou/mm3 (0.00-0.00); Lymphocytes # (Auto) 0.8 Thou/mm3 (1.0-4.8); Lymphocytes % (Auto) 12 % (10-50); Mean Corpuscular HGB Conc 32.2 g/dl (31.0-37.0); Mean Corpuscular Hemoglobin 27.3 pg (25.0-35.0); Mean Corpuscular Volume 85 fL (80-100); Monocytes # (Auto) 0.6 Thou/mm3 (0.0-0.8); Monocytes % (Auto) 8 % (0-12); Neutrophils # (Auto) 5.2 Thou/mm3 (1.8-7.7); Neutrophils % (Auto) 73 % (37-80); Nucleated Red Blood Cell % 0 /100 WBC (0); Platelet Count 348 Thou/mm3 (140-440); RDW Standard Deviation 38.9 fL (36.4-46.3); Red Blood Count 3.44 Miln/mm3 (4.00-5.20); White Blood Count 7.2 Thou/mm3 (3.6-11.0)
[2024-03-29 06:40] LABS: Alanine Aminotransferase 8 U/L (10-49); Albumin, Serum 3.7 gm/dL (3.4-4.8); Albumin/Globulin Ratio 1.2 (1.2-2.2); Alkaline Phosphatase 73 U/L (46-116); Anion Gap 8 (7-16); Aspartate Amino Transferase 11 U/L (0-34); BUN/Creatinine Ratio 21 Ratio (12-20); Bilirubin,Total 0.4 mg/dL (0.3-1.2); Blood Urea Nitrogen 45 mg/dL (9-23); Calcium 8.9 mg/dL (8.3-10.6); Calcium (Corrected) 9.1 mg/dL (8.5-10.1); Carbon Dioxide 20.8 mMol/L (20.0-31.0); Chloride 108 mMol/L (98-107); Creatinine (Component) 2.1 mg/dL (0.6-1.3); Estimated Creatinine Clearance 30.1 mL/min (>60); Globulin 3.2 gm/dL (2.3-3.5); Glucose 85 mg/dL (74-106); Osmolality,Calculated 284 (275-295); Sodium 137 mMol/L (136-145); Total Protein 6.9 gm/dL (5.7-8.2); eGFR 26 See Note
[2024-03-29] MEDS: ASPIRIN EC 81 MG TABEC PO (09:25)
[2024-03-29] MEDS: CLOPIDOGREL BISULFATE 75 MG TABLET PO (09:25)
[2024-03-29] MEDS: SENNA TABLET 1 TAB PO (09:25)
--- NOTE | 2024-03-29 10:24 | ESPR_ITS ---
Documentation for date of: 03/29/24 Subjective Subjective Interval history: Patient was seen and examined at bedside. No acute events overnight. Today no new focal deficits, no additional episodes of aphasia. Head of bed elevation continues to remain less than 30 degrees. Patient is doing well stating that she still is having mild word finding difficulty however much improved from yesterday. Able to express full sentences. Initial echo negative for PFO however very high suspicion of anatomical disruption due to embolic infarct findings--repeating bubble study tomorrow. Continue aspirin 325+ Plavix 75+ atorvastatin 80 mg daily Goal SBP 160?180 continue to hold all blood pressure medications for now Review of systems otherwise negative except what is mentioned above. Exam Vital Signs Temp Pulse Resp BP Pulse Ox O2 Del Method O2 Flow Rate 97.0 F 74 18 168/71 H 97 Room Air 2 03/29/24 08:00 03/29/24 08:00 03/29/24 08:00 03/29/24 08:00 03/29/24 08:00 03/29/24 08:00 03/27/24 08:00 Narrative Exam General: Alert and oriented x3. No acute distress, cooperative Eyes: Pupils are equal and reactive to light bilaterally HEENT: Atraumatic, normocephalic. No JVD noted. Mucosa moist. Left side neck bandage. Cardiovascular: Normal S1 and S2. Regular rate and rhythm. No pitting edema Respiratory: Lungs are clear to auscultation bilaterally. No wheezing or crackles heard. Abdomen: Soft, nontender, not distended, normal bowel sounds. Skin: Warm to touch, dry, no rashes noted Musculoskeletal: No gross injuries. Able to move all 4 extremities. Neuro: global aphasia resolved, no other focal neuro deficits, normal movement and strenght in U/LE Psych: Normal affect and mood Objective Labs 03/30/24 05:39 03/30/24 05:39 Labs: Laboratory Results - last 24 hr 03/29/24 03/29/24 04:34 05:00 WBC 7.2 RBC 3.44 L Hgb 9.4 L Hct 29.2 L MCV 85 MCH 27.3 MCHC 32.2 RDW Std Deviation 38.9 Plt Count 348 Neut % (Auto) 73 Lymph % (Auto) 12 [place] % (Auto) 8 Eos % (Auto) 7 Baso % (Auto) 1 Neut # (Auto) 5.2 Lymph # (Auto) 0.8 L [place] # (Auto) 0.6 Eos # (Auto) 0.5 Baso # (Auto) 0.1 Immature Gran # (Auto) 0.03 H Absolute Nucleated RBC 0.00 Immature Gran % 0 Nucleated RBC % 0 Sodium 137 Potassium 4.0 Chloride 108 H Carbon Dioxide 20.8 Anion Gap 8 BUN 45 H Creatinine 2.1 H Estim Creat Clear Calc 30.1 L eGFR 26 L BUN/Creatinine Ratio 21 H Glucose 85 Calculated Osmolality 284 Calcium 8.9 Corrected Calcium 9.1 Total Bilirubin 0.4 AST 11 ALT 8 L Alkaline Phosphatase 73 Total Protein 6.9 Albumin 3.7 Globulin 3.2 Albumin/Globulin Ratio 1.2 Quality Measures Quality Measures none Assessment & Plan Assessment Current Active Medications: Generic Name Dose Route Start Last Admin Trade Name Freq PRN Reason Stop Dose Admin Acetaminophen 650 mg 03/25/24 21:38 Acetaminophen 325 Mg Tablet PO 04/24/24 21:37 Q6H PRN Pain 1-3 or Fever >100.3 Aspirin 81 mg 03/26/24 09:00 03/29/24 09:25 Aspirin Ec 81 Mg Tabec PO 04/25/24 08:59 81 mg QDAY RUSLAN Administration Atorvastatin Calcium 80 mg 03/26/24 21:00 03/28/24 20:04 Atorvastatin Calcium 20 Mg Tablet PO 04/25/24 20:59 80 mg HS RUSLAN Administration Clopidogrel Bisulfate 75 mg 03/27/24 14:30 03/29/24 09:25 Clopidogrel Bisulfate 75 Mg Tablet PO 04/26/24 14:29 75 mg QDAY RUSLAN Administration Dextrose 50 ml 03/25/24 22:07 Dextrose 50%-Water Inj 50 Ml Syringe IV 04/24/24 22:06 Q15MIN PRN BG <50 OR BG <70 & pt unresponsive Glucagon 1 mg 03/25/24 22:07 Glucagon Inj 1 Mg Vial IM Q15MIN PRN BG <70, and no IV access Insulin Human Lispro 0 unit 03/26/24 11:30 03/29/24 07:32 Insulin Lispro (Admelog) 1 Unit/0.01 Ml Unit SC 04/25/24 11:29 Not Given ACHS [facility] Protocol Ondansetron HCl 4 mg 03/25/24 14:04 Ondansetron Inj 2 Mg/Ml Inj 2 Ml IV 04/24/24 14:03 Q4HR PRN NAUSEA OR VOMITING Pharmacy Consult 1 each 03/26/24 00:17 Pharmacy To Consult Pneumovacc XX 04/25/24 00:16 PRN PRN CONSULT Sennosides 1 tab 03/26/24 09:00 03/29/24 09:25 Senna Tablet PO 04/25/24 08:59 1 tab QDAY RUSLAN Administration Protocol Plan In summary: 63-year-old female PMHx of HTN, CVA, DM, presented with 3 days of jumbled speech. Admitted for acute CVA versus TIA. CTA showed bilateral small basal ganglia infarct of undetermined age. Currently on statin and ASPIRIN. Pending echocardiogram and MRI. Neurology, Dr. Calhoun following, appreciate recommendations. Patient overall improving, symptoms nearly resolved. #CVA #History of CVA #Hypertensive emergency VS urgency (resolved) #Hx HTN, HLD Presenting with 3 days of jumbled without focal neurological. Hx of CVA in May with right-sided deficit, started on blood thinners in the hospital, but wasn't continued outpatient. Head CT bilateral small basal ganglia infarct undetermined age. EKG sinus rhythm. History of hypertension, recently started on AMLODIPINE, LISINOPRIL, METOPROLOL. Admission SBP 200, improved with current regimen, currently BP 150/77, HR 65. Neurology following, recommended ASPIRIN and MRI. ? MRI showed multiple acute infarcts in left posterior temporal, parietal, left occipital lobe. Occlusions in the M1 segment of left MCA. LDL 130, HDL 32, cholesterol 188. A1c 6.2, TSH 1.07 ? aspirin to 325 mg daily + Plavix 75 mg daily for 90 days -Hold all blood pressure medication for permissive hypertension -Goal SBP 160?180 ? Continue ATORVASTATIN 80 mg daily ? first Echo with bubble study negative for PFO -repeat bubble study pending #History of diabetes A1c 6.2 this visit. GLUCOSE 91 today ? Accu-Cheks ? INSULIN sliding scale #Acute kidney injury #Possible CKD 2/2 diabetic nephropathy Likely dehydration. Admission BUN 38, CR 2.1 > 1.9 today. UA 2+ positive protein. Patient admits to reduced oral intake. ?Follow-up with nephrology outpatient -Increase oral fluid intake with 2 to 3 L/day ? Renally dose meds, avoid overdiuresis and NEPHROTOXINS -Hold home lisinopril until evaluation by nephrology # Normocytic anemia Hb 9.8, MCV 88. -Follow-up outpatient for workup of anemia -Ferrous sulfate 325 daily #Left neck ulcer Left side of the neck fold ulcer, chronic 2+ years which started as a blister that opened up and increase in size. Painless and nondraining. Has biopsy scheduled outpatient. ? Wound care for now ? Continue follow-up outpatient with PCP Health maintenance Diet: CHO consistent GI prophylaxis: Not indicated DVT prophylaxis: SCDs Antibiotics: Not indicated CODE STATUS: Full code Disposition: CVA workup Patient case was discussed with attending, Dr. Medina and senior Dr. Padilla. Bhavani Griffiths, PGY1 L Ms Humphrey is a 63 year old female with a PMHx of HTN, HLD, DM2, prior RT hemispheric stroke, who was admitted 03/25 following for new onset aphasia. She was found to have a LT M1 MCA occlusion with multifocal distal MCA regions of diffusion restriction. Per Neurology recommendations, patient started on ASA, plavix and statin therapy. 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 Tele- neurology was consulted again, as per recommendations, normalizing of her blood pressure resulted in a relative hypoperfusion to regions of the LT MCA affected by the M1 occlusion. PLAN: We will continue with liberalized SBP goal 160-180mmHg. Will increase ASA 81 --> 325mg daily and continue Plavix 75qD x 90 days as per [facility] protocol for sever ICAD. If symptoms recur would place HOB flat or slightly Trendelenburg for periods of 15-30min every 4 hrs. Pending in house neurology recommendations. Patient examined and case discussed with the team including attending physician. Note reviewed, I agree with the care plan as documented. - Smith Padilla MD, PGY 2 Attending Provider Attestation/Addendum I have examined the patient, reviewed labs and imaging findings, discussed the case with the resident(s), and reviewed entered orders. I agree with the plan of care as outlined in this note, with these additional summaries/recommendations: Patient seen at bedside. No acute overnight events. Patient originally admitted on 03/25 for acute CVA and found to have multiple acute infract's left posterior, temporal, parietal and left occipital lobe with occlusion M1 segment left cerebral artery. On 03/28 patient had rapid response for return of aphasia and concern for recurrent CVA. Stroke alert called. Teleneurology consulted. Teleneurology recommends aspirin 81 mg p.o. daily and Plavix 75 mg p.o. daily for 90 days for severe intracranial arthrosclerotic disease. Teleneurology also recommends SBP goal of 160-180. Continue high intensity statin. Repeat hematology and chemistry panel in AM. Appreciate in-house neurology recommendations. Anticipate discharge in the next [address] Medina
[2024-03-29] MEDS: INSULIN LISPRO (AdmeLOG) 1 UNIT/0.01 ML UNIT SC ×2 (11:37→20:27)
[2024-03-29] MEDS: ATORVASTATIN CALCIUM 20 MG TABLET 80 MG PO (20:27)
--- NOTE | 2024-03-29 22:44 | PD.NEUROPROG ---
Documentation for date of: 03/29/24 Subjective Subjective Interval history: Patient was seen in telemetry today. No new symptoms reported. Patient does not have any focal neurological deficit including weakness or paresthesias or speech disturbances. Tolerating oral diet well. Exam - Neurology Vital Signs Temp Pulse Resp BP Pulse Ox O2 Del Method O2 Flow Rate 97.5 F 78 18 169/69 H 95 Room Air 2 03/29/24 20:00 03/29/24 20:00 03/29/24 20:00 03/29/24 20:00 03/29/24 20:00 03/29/24 20:00 03/27/24 08:00 Narrative Exam GENERAL APPEARANCE: Well hydrated, well-nourished in no acute distress. HEENT: Normocephalic, atraumatic, extraocular movements intact. Pupils: Equal reacting to light and accommodation NECK: Supple, no JVD or bruits. CARDIOVASULAR: Heart: S1, S2 heard, regular without S3-S4 or murmur no rubs or gallops. LUNGS/CHEST: Clear to auscultation bilaterally. No rails, rhonchi, or wheezing. Normal inspection. ABDOMEN: Soft, nontender, with normal bowel sounds. No pulsatile masses. No rebound, rigidity, or guarding. Normal inspection and palpation. EXTREMITIES: Normal inspection and palpation. No edema, clubbing or cyanosis. SKIN: Warm and dry without rashes. Normal inspection. MUSCULOSKELETAL: No cervical, thoracic, lumbar or midline bony tenderness. Normal inspection. NEURO: Alert, awake and oriented x3. Cranial nerves: II through XII grossly intact. Speech and language: Normal with no dysarthria or dysphasia. Motor system: Tone and bulk: Normal: Strength: 5 out of 5 in all 4 extremities; No pronator drift noted. Deep tendon reflexes: 2+ bilaterally symmetrical. Plantar reflex: Downgoing bilaterally. Sensory system: Intact to all modalities of sensation bilaterally. Coordination: Intact to [id number]-[id number] and hzym-qhln-rklk test bilaterally. No ataxia, no dysmetria, or dysdiadochokinesia noted. No intention tremors noted. Gait: Normal. Toe, heel, tandem walk all are normal. Romberg: Negative. No signs of meningeal irritation noted. PSYCHIATRIC: Normal mood and affect. Objective Labs 03/29/24 05:00 03/29/24 04:34 Labs: Laboratory Results - last 24 hr 03/29/24 03/29/24 04:34 05:00 WBC 7.2 RBC 3.44 L Hgb 9.4 L Hct 29.2 L MCV 85 MCH 27.3 MCHC 32.2 RDW Std Deviation 38.9 Plt Count 348 Neut % (Auto) 73 Lymph % (Auto) 12 [place] % (Auto) 8 Eos % (Auto) 7 Baso % (Auto) 1 Neut # (Auto) 5.2 Lymph # (Auto) 0.8 L [place] # (Auto) 0.6 Eos # (Auto) 0.5 Baso # (Auto) 0.1 Immature Gran # (Auto) 0.03 H Absolute Nucleated RBC 0.00 Immature Gran % 0 Nucleated RBC % 0 Sodium 137 Potassium 4.0 Chloride 108 H Carbon Dioxide 20.8 Anion Gap 8 BUN 45 H Creatinine 2.1 H Estim Creat Clear Calc 30.1 L eGFR 26 L BUN/Creatinine Ratio 21 H Glucose 85 Calculated Osmolality 284 Calcium 8.9 Corrected Calcium 9.1 Total Bilirubin 0.4 AST 11 ALT 8 L Alkaline Phosphatase 73 Total Protein 6.9 Albumin 3.7 Globulin 3.2 Albumin/Globulin Ratio 1.2 Assessment & Plan Assessment and plan (1) CVA (cerebral vascular accident): Status: Acute Assessment and plan: Fortunately patient does not have any focal neurological deficit MRI brain showed multiple acute infarcts left posterior temporal, parietal and left occipital lobe; MRA showed Occlusions M1 segment left middle cerebral artery. Continue with aspirin 81 mg, Plavix 75 mg and statin. Echocardiogram: Negative bubble study. No evidence of PFO or ASD. Mild Left ventricle dilatation. Normal function. Estimated EF 50-55% Normal RV size and function. Mild MAC. Mild MR Mild AV sclerosis without stenosis Trace TR (2) Hypertension: Status: Acute Assessment and plan: needs better control
[2024-03-30] VITALS (11 sets, daily range): BP systolic 147–194; BP diastolic 66–90; PULSE 61–71; RESP 17–20; TEMP 36.1–36.7; O2SAT 95–99; BMI 33.3
[2024-03-30 05:59] LABS: Basophils # (Auto) 0.1 Thou/mm3 (0.0-0.2); Basophils % (Auto) 1 % (0-2.5); Eosinophils # (Auto) 0.5 Thou/mm3 (0.0-0.5); Eosinophils % (Auto) 8 % (0-10); Hematocrit 27.9 % (36.0-46.0); Hemoglobin 9.1 g/dL (12.0-16.0); Immature Granulocytes % (Auto) 0 % (0-0); Immature Granulocytes Auto 0.03 Thou/mm3 (0.00-0.00); Lymphocytes % (Auto) 14 % (10-50); Mean Corpuscular HGB Conc 32.6 g/dl (31.0-37.0); Mean Corpuscular Hemoglobin 27.2 pg (25.0-35.0); Mean Corpuscular Volume 83 fL (80-100); Monocytes # (Auto) 0.6 Thou/mm3 (0.0-0.8); Monocytes % (Auto) 9 % (0-12); Neutrophils # (Auto) 4.6 Thou/mm3 (1.8-7.7); Neutrophils % (Auto) 68 % (37-80); Nucleated Red Blood Cell % 0 /100 WBC (0); Platelet Count 350 Thou/mm3 (140-440); RDW Standard Deviation 38.8 fL (36.4-46.3); Red Blood Count 3.35 Miln/mm3 (4.00-5.20); White Blood Count 6.8 Thou/mm3 (3.6-11.0)
[2024-03-30 07:03] LABS: Alanine Aminotransferase 8 U/L (10-49); Albumin, Serum 3.7 gm/dL (3.4-4.8); Albumin/Globulin Ratio 1.2 (1.2-2.2); Alkaline Phosphatase 74 U/L (46-116); Anion Gap 8 (7-16); Aspartate Amino Transferase 12 U/L (0-34); BUN/Creatinine Ratio 21 Ratio (12-20); Bilirubin,Total 0.4 mg/dL (0.3-1.2); Blood Urea Nitrogen 45 mg/dL (9-23); Calcium 9.1 mg/dL (8.3-10.6); Calcium (Corrected) 9.3 mg/dL (8.5-10.1); Carbon Dioxide 21.7 mMol/L (20.0-31.0); Chloride 107 mMol/L (98-107); Creatinine (Component) 2.1 mg/dL (0.6-1.3); Estimated Creatinine Clearance 29.9 mL/min (>60); Glucose 95 mg/dL (74-106); Osmolality,Calculated 285 (275-295); Sodium 137 mMol/L (136-145); Total Protein 6.7 gm/dL (5.7-8.2); eGFR 26 See Note
[2024-03-30] MEDS: CLOPIDOGREL BISULFATE 75 MG TABLET PO (08:57)
[2024-03-30] MEDS: SENNA TABLET 1 TAB PO (08:58)
[2024-03-30] MEDS: ASPIRIN EC 81 MG TABEC PO (08:59)
--- NOTE | 2024-03-30 11:47 | PC.NURSE ---
attempted to call vivienne crews md team at bedside updating pt on care, no response. dr. corona to call later
--- NOTE | 2024-03-30 11:50 | PC.NURSE ---
ok per for pt to have head of bed as preferred by pt. if pt develops symptoms again, nurse to call md to inform
[2024-03-30] MEDS: METOPROLOL TARTRATE 25 MG TABLET 12.5 MG PO ×2 (12:25→20:00)
[2024-03-30] MEDS: amLODIPine BESYLATE 5 MG TABLET 10 MG PO (18:37)
--- NOTE | 2024-03-30 20:32 | ESPR_ITS ---
<Statement entered by Mau Costa DO - 03/30/24 20:47> Senior attestation: Patient was examined and case was reviewed with team including attending physician. Note reviewed, I agree with most of its contents and agree with the patient's care. Patient reports feeling well, does not report any new episodes of aphasia or other neurological deficits. Neurology team contacted, advises slowly decreasing blood pressure from sBP 160-180 goal to 140s. Will start home metoprolol tartrate 12.5 mg BID and observe blood pressure. Anticipate discharge in next 24-48 hours pending adequate blood pressure control and clinical stability. Mau Costa DO PGY-3 Documentation for date of: 03/30/24 Subjective Subjective Interval history: Patient was seen and examined at bedside. No acute events overnight. Patient denies any new focal neurodeficits or episodes of aphasia. Teleneuro had stated that patient should be kept in permissive hypertension SBP 160?180. However in-house neurology has suggested to slowly decrease blood pressure to 140s. Will start patient on metoprolol tartrate 12.5 twice daily home dose and continue to monitor. In-house telemetry had stated to treat patient with aspirin 325 mg daily plus Plavix 75 mg daily for 90 days per SAMMPRIS trial. However in-house neurology recommend aspirin 81 mg and Plavix 75 mg for 90 days. Will continue with aspirin 81 mg + Plavix 75+ atorvastatin 80 mg daily. Nephrology consulted for evaluation of possible underlying CKD. Hemoglobin 9.1, sodium 137, potassium 4.0, creatinine 2.1 Anticipate discharge in next 24 hours if blood pressure adequately controlled and no new symptoms of aphasia. Review of systems otherwise negative except what is mentioned above. Exam Vital Signs Temp Pulse Resp BP Pulse Ox O2 Del Method O2 Flow Rate 97.2 F 68 18 184/90 H 99 Room Air 2 03/30/24 16:00 03/30/24 20:00 03/30/24 16:00 03/30/24 20:00 03/30/24 16:00 03/30/24 16:00 03/30/24 08:00 Narrative Exam General: Alert and oriented x3. No acute distress, cooperative Eyes: Pupils are equal and reactive to light bilaterally HEENT: Atraumatic, normocephalic. No JVD noted. Mucosa moist. Left side neck bandage. Cardiovascular: Normal S1 and S2. Regular rate and rhythm. No pitting edema Respiratory: Lungs are clear to auscultation bilaterally. No wheezing or crackles heard. Abdomen: Soft, nontender, not distended, normal bowel sounds. Skin: Warm to touch, dry, no rashes noted Musculoskeletal: No gross injuries. Able to move all 4 extremities. Neuro: global aphasia resolved, no other focal neuro deficits, normal movement and strenght in U/LE Psych: Normal affect and mood Objective Labs 03/31/24 05:20 03/31/24 05:20 Labs: Laboratory Results - last 24 hr 03/30/24 05:39 WBC 6.8 RBC 3.35 L Hgb 9.1 L Hct 27.9 L MCV 83 MCH 27.2 MCHC 32.6 RDW Std Deviation 38.8 Plt Count 350 Neut % (Auto) 68 Lymph % (Auto) 14 [place] % (Auto) 9 Eos % (Auto) 8 Baso % (Auto) 1 Neut # (Auto) 4.6 Lymph # (Auto) 1.0 [place] # (Auto) 0.6 Eos # (Auto) 0.5 Baso # (Auto) 0.1 Immature Gran # (Auto) 0.03 H Absolute Nucleated RBC 0.00 Immature Gran % 0 Nucleated RBC % 0 Sodium 137 Potassium 4.0 Chloride 107 Carbon Dioxide 21.7 Anion Gap 8 BUN 45 H Creatinine 2.1 H Estim Creat Clear Calc 29.9 L eGFR 26 L BUN/Creatinine Ratio 21 H Glucose 95 Calculated Osmolality 285 Calcium 9.1 Corrected Calcium 9.3 Total Bilirubin 0.4 AST 12 ALT 8 L Alkaline Phosphatase 74 Total Protein 6.7 Albumin 3.7 Globulin 3.0 Albumin/Globulin Ratio 1.2 Quality Measures Quality Measures none Assessment & Plan Assessment Current Active Medications: Generic Name Dose Route Start Last Admin Trade Name Freq PRN Reason Stop Dose Admin Acetaminophen 650 mg 03/25/24 21:38 Acetaminophen 325 Mg Tablet PO 04/24/24 21:37 Q6H PRN Pain 1-3 or Fever >100.3 Amlodipine Besylate 10 mg 03/30/24 16:45 03/30/24 18:37 Amlodipine Besylate 5 Mg Tablet PO 04/29/24 16:44 10 mg QDAY RUSLAN Administration Aspirin 81 mg 03/30/24 09:00 03/30/24 08:59 Aspirin Ec 81 Mg Tabec PO 04/29/24 08:59 81 mg QDAY RUSLAN Administration Clopidogrel Bisulfate 75 mg 03/27/24 14:30 03/30/24 08:57 Clopidogrel Bisulfate 75 Mg Tablet PO 04/26/24 14:29 75 mg QDAY RUSLAN Administration Dextrose 50 ml 03/25/24 22:07 Dextrose 50%-Water Inj 50 Ml Syringe IV 04/24/24 22:06 Q15MIN PRN BG <50 OR BG <70 & pt unresponsive Glucagon 1 mg 03/25/24 22:07 Glucagon Inj 1 Mg Vial IM Q15MIN PRN BG <70, and no IV access Hydralazine HCl 25 mg 03/30/24 22:00 Hydralazine Hcl 25 Mg Tablet PO 04/29/24 21:59 TID [facility] Insulin Human Lispro 0 unit 03/26/24 11:30 03/30/24 19:59 Insulin Lispro (Admelog) 1 Unit/0.01 Ml Unit SC 04/25/24 11:29 Not Given ACHS [facility] Protocol Metoprolol Tartrate 12.5 mg 03/30/24 11:50 03/30/24 20:00 Metoprolol Tartrate 25 Mg Tablet PO 04/29/24 11:49 12.5 mg BID RUSLAN Administration Ondansetron HCl 4 mg 03/25/24 14:04 Ondansetron Inj 2 Mg/Ml Inj 2 Ml IV 04/24/24 14:03 Q4HR PRN NAUSEA OR VOMITING Pharmacy Consult 1 each 03/26/24 00:17 Pharmacy To Consult Pneumovacc XX 04/25/24 00:16 PRN PRN CONSULT Sennosides 1 tab 03/26/24 09:00 03/30/24 08:58 Senna Tablet PO 04/25/24 08:59 1 tab QDAY RUSLAN Administration Protocol Plan In summary: 63-year-old female PMHx of HTN, CVA, DM, presented with 3 days of jumbled speech. Admitted for acute CVA versus TIA. CTA showed bilateral small basal ganglia infarct of undetermined age. Currently on statin and ASPIRIN. Pending echocardiogram and MRI. Neurology, Dr. Calhoun following, appreciate recommendations. Patient overall improving, symptoms nearly resolved. #CVA #History of CVA #Hypertensive emergency VS urgency (resolved) #Hx HTN, HLD Presenting with 3 days of jumbled without focal neurological. Hx of CVA in May with right-sided deficit, started on blood thinners in the hospital, but wasn't continued outpatient. Head CT bilateral small basal ganglia infarct undetermined age. EKG sinus rhythm. History of hypertension, recently started on AMLODIPINE, LISINOPRIL, METOPROLOL. Admission SBP 200, improved with current regimen, currently BP 150/77, HR 65. Neurology following, recommended ASPIRIN and MRI. ? MRI showed multiple acute infarcts in left posterior temporal, parietal, left occipital lobe. Occlusions in the M1 segment of left MCA. LDL 130, HDL 32, cholesterol 188. A1c 6.2, TSH 1.07 ? aspirin to 81mg daily + Plavix 75 mg daily for 90 days -start home dose metoprolol tartrate 12.5 twice daily -Slowly decrease blood pressure systolic 140s and monitor symptoms ? Continue ATORVASTATIN 80 mg daily ? Echo with bubble study negative for PFO #History of diabetes A1c 6.2 this visit. GLUCOSE 91 today ? Accu-Cheks ? INSULIN sliding scale #Acute kidney injury #Possible CKD 2/2 diabetic nephropathy Likely dehydration. Admission BUN 38, CR 2.1 > 1.9 today. UA 2+ positive protein. Patient admits to reduced oral intake. ? Nephrology recommendations pending -Increase oral fluid intake with 2 to 3 L/day ? Renally dose meds, avoid overdiuresis and NEPHROTOXINS -Hold home lisinopril until evaluation by nephrology # Normocytic anemia Hb 9.8, MCV 88. -Follow-up outpatient for workup of anemia -Ferrous sulfate 325 daily #Left neck ulcer Left side of the neck fold ulcer, chronic 2+ years which started as a blister that opened up and increase in size. Painless and nondraining. Has biopsy scheduled outpatient. ? Wound care for now ? Continue follow-up outpatient with PCP Health maintenance Diet: CHO consistent GI prophylaxis: Not indicated DVT prophylaxis: SCDs Antibiotics: Not indicated CODE STATUS: Full code Disposition: CVA workup Patient case was discussed with attending, Dr. Kearney and senior Dr. Costa. Bhavani Griffiths, PGY1 Attending Provider Attestation/Addendum I have discussed and was present for the essential components of the history, physical examination, diagnosis, and treatment plan with the resident. I agree with the patient's care as documented by the resident and amended herein by me. Mg Kearney DO. Although this document has been carefully reviewed, there may still be some phonetic and other typographical errors. These errors are purely grammatical due to imperfections in the software program and should not be construed in any way to compromise the substance of the patient's medical care during this visit.
--- NOTE | 2024-03-30 21:20 | PC.NURSE ---
NOTIFIED DR. PENA RE CONSULT. WILL SEE PT IN AM
[2024-03-30] MEDS: hydrALAZINE HCL 25 MG TABLET PO (22:02)
--- NOTE | 2024-03-30 23:40 | VVPN_ITS ---
Telemedicine visit statement This visit was conducted with the use of phone was obtained on 03/30/24 at 2340. Documentation for date of: 03/30/24 Subjective Subjective Interval history: Patient is in MedSurg, reportedly had an episode of aphasia when the blood pressure was dropped from 160s to 180s systolic to 140. Patient underwent echocardiogram with a bubble study: Showed negative for PFO and thrombus Virtual exam Vital Signs Temp Pulse Resp BP Pulse Ox O2 Del Method O2 Flow Rate 98.1 F 66 18 172/78 H 95 Room Air 2 03/30/24 20:00 03/30/24 22:02 03/30/24 20:00 03/30/24 22:02 03/30/24 20:00 03/30/24 20:00 03/30/24 08:00 Objective Labs 03/30/24 05:39 03/30/24 05:39 Labs: Laboratory Results - last 24 hr 03/30/24 05:39 WBC 6.8 RBC 3.35 L Hgb 9.1 L Hct 27.9 L MCV 83 MCH 27.2 MCHC 32.6 RDW Std Deviation 38.8 Plt Count 350 Neut % (Auto) 68 Lymph % (Auto) 14 [place] % (Auto) 9 Eos % (Auto) 8 Baso % (Auto) 1 Neut # (Auto) 4.6 Lymph # (Auto) 1.0 [place] # (Auto) 0.6 Eos # (Auto) 0.5 Baso # (Auto) 0.1 Immature Gran # (Auto) 0.03 H Absolute Nucleated RBC 0.00 Immature Gran % 0 Nucleated RBC % 0 Sodium 137 Potassium 4.0 Chloride 107 Carbon Dioxide 21.7 Anion Gap 8 BUN 45 H Creatinine 2.1 H Estim Creat Clear Calc 29.9 L eGFR 26 L BUN/Creatinine Ratio 21 H Glucose 95 Calculated Osmolality 285 Calcium 9.1 Corrected Calcium 9.3 Total Bilirubin 0.4 AST 12 ALT 8 L Alkaline Phosphatase 74 Total Protein 6.7 Albumin 3.7 Globulin 3.0 Albumin/Globulin Ratio 1.2 Assessment & Plan Assessment (1) CVA (cerebral vascular accident): Status: Acute Assessment and plan: Fortunately patient does not have any focal neurological deficit MRI brain showed multiple acute infarcts left posterior temporal, parietal and left occipital lobe; MRA showed Occlusions M1 segment left middle cerebral artery. Continue with aspirin 81 mg, Plavix 75 mg and statin. Echocardiogram: Negative bubble study. No evidence of PFO or ASD. Mild Left ventricle dilatation. Normal function. Estimated EF 50-55% Normal RV size and function. Mild MAC. Mild MR Mild AV sclerosis without stenosis Trace TR (2) Hypertension: Needs better control and observe for recurrence of language deficit for another 24 hours then decide about the discharge.
[2024-03-31] VITALS (15 sets, daily range): BP systolic 139–179; BP diastolic 60–81; PULSE 57–83; RESP 16–20; TEMP 36–37.2; O2SAT 94–98
[2024-03-31 06:34] LABS: Alanine Aminotransferase 20 U/L (10-49); Albumin, Serum 3.9 gm/dL (3.4-4.8); Albumin/Globulin Ratio 1.2 (1.2-2.2); Alkaline Phosphatase 78 U/L (46-116); Anion Gap 8 (7-16); Aspartate Amino Transferase 25 U/L (0-34); BUN/Creatinine Ratio 23 Ratio (12-20); Bilirubin,Total 0.3 mg/dL (0.3-1.2); Blood Urea Nitrogen 46 mg/dL (9-23); Calcium 9.2 mg/dL (8.3-10.6); Calcium (Corrected) 9.3 mg/dL (8.5-10.1); Carbon Dioxide 22.7 mMol/L (20.0-31.0); Chloride 106 mMol/L (98-107); Estimated Creatinine Clearance 31.6 mL/min (>60); Globulin 3.2 gm/dL (2.3-3.5); Glucose 93 mg/dL (74-106); Osmolality,Calculated 285 (275-295); Potassium 3.8 mMol/L (3.4-5.1); Sodium 137 mMol/L (136-145); Total Protein 7.1 gm/dL (5.7-8.2); eGFR 28 See Note
[2024-03-31 07:19] LABS: Basophils # (Auto) 0.1 Thou/mm3 (0.0-0.2); Basophils % (Auto) 1 % (0-2.5); Eosinophils # (Auto) 0.4 Thou/mm3 (0.0-0.5); Eosinophils % (Auto) 6 % (0-10); Hematocrit 31.8 % (36.0-46.0); Hemoglobin 10.2 g/dL (12.0-16.0); Immature Granulocytes % (Auto) 1 % (0-0); Immature Granulocytes Auto 0.04 Thou/mm3 (0.00-0.00); Lymphocytes % (Auto) 14 % (10-50); Mean Corpuscular HGB Conc 32.1 g/dl (31.0-37.0); Mean Corpuscular Hemoglobin 27.4 pg (25.0-35.0); Mean Corpuscular Volume 86 fL (80-100); Monocytes # (Auto) 0.6 Thou/mm3 (0.0-0.8); Monocytes % (Auto) 8 % (0-12); Neutrophils % (Auto) 71 % (37-80); Nucleated Red Blood Cell % 0 /100 WBC (0); Platelet Count 336 Thou/mm3 (140-440); RDW Standard Deviation 39.1 fL (36.4-46.3); Red Blood Count 3.72 Miln/mm3 (4.00-5.20)
--- NOTE | 2024-03-31 08:09 | ESCONSULT_ITS ---
HPI Data of Consult Consult date: 03/31/24 Requesting Physician: Carlitos Hdz MD Admitting Provider: Chace Owen MD Attending Provider: Carlitos Hdz MD Primary Care Provider: Physician No Primary/Family Consult Narrative Reason for consult: Acute kidney injury History of present illness: Ms. Humphrey is a 63-year-old female with past medical history of hypertension, diabetes, CVA who presented to ED on 03/25/2024 with complaint of jumbled speech. Patient's chief complaints were words not coming out right which he initially attributed to a tiredness, stroke alert was called in ED, patient does report that she had a stroke previously and May, she was admitted to [facility] in [place], patient recently moved to [place]. She reported that she was ignoring her diabetes and was noncompliant before May 2023, started taking her medication for diabetes after the stroke regularly. Patient was admitted for stroke workup. Nephrology consulted for suspicion of WALLACE on CKD. ED Course: In the ED, patient was afebrile, hypertensive with SBP> 200, saturating 99% on room air. Head CT showed bilateral small basal ganglia infarcts, age indeterminate, recommended to follow-up with MRI/MRA. As her symptoms have been already 4 days, teleneuro was not consulted when the ED neurologist Dr Calhoun was consulted who recommended to start the patient on aspirin 81 mg and admitted for further workup. CBC had a WBC of 7.9 Hgb 9.7 and CMP was significant for BUN of 38 and creatinine 2.1, baseline unknown. Glucose was 126. The patient has been admitted for CVA workup/rule out. Home medication: Atorvastatin 80 mg, clopidogrel 75 mg, hydralazine 100 mg p.o. twice daily 03/31/2024: Patient seen at bedside, patient denies following up with any degreasing solution mixer in the past, reports that she started taking her diabetes medication regularly after last stroke in May, high suspicion of chronic kidney disease secondary to diabetic nephropathy, ordered further workup, advised patient to follow-up with primary care for nephrology follow-up outpatient [place]. cc:: cc: Carlitos Hdz MD Review of Systems Review of Systems Narrative Review of Systems: GENERAL: Denies fevers/chills or diaphoresis. HEENT: Denies headache, admits blurriness in vision. Denies nasal discharge. NEURO: Denies unusual weakness or difficulty speaking. CARDIO: Denies chest pain or palpitations. PULM: Denies SOB, coughing, or wheezing. GI: Denies abdominal pain, N/V/C/D/reflux/gas, bright red blood per rectum or melena. Reports having BMs. URO: Denies burning/itching/pain/urinary changes. MSK/EXT/SKIN: Denies joint/skeletal/muscle pain, issues/changes in upper or lower extremities, itchiness, or superficial pain. PSYCH: Cooperative, pleasant mood & affect. Past Medical History Past Medical History NEUROLOGIC: Positive Cerebrovascular Accident (may 2023) CARDIAC: Positive Hypertension; Negative Congestive Heart Failure RESPIRATORY: Negative Respiratory Disorders or Chronic Obstructive Pulmonary Disease (COPD) GENITOURINARY: Negative Renal Disease ENT: Positive History of ENT Problems (pt reports having problem with vision) ENDOCRINE: Positive Diabetes Mellitus Type 2; Negative Diabetes Mellitus Type 1 OTHER HISTORY: Positive Cancer Family History FAMILY HISTORY: Positive Family Psychiatric Problems (uncle/brother- depression), Family Cardiac Disorders (Dad- stroke) and Family Endocrine Disorders (mother-DM) Surgical History SURGICAL: Positive Hysterectomy Social History SMOKING STATUS: Unknown if ever smoked SECOND HAND EXPOSURE: No Past Medical History Comments PMH COMMENT: PMH: hypertension, diabetes, CVA PSHx-Nil Social history- neither smokes nor drinks or uses illicit drugs Exam Vital Signs Temp Pulse Resp BP Pulse Ox O2 Del Method O2 Flow Rate 97.3 F 57 L 20 139/67 H 94 L Room Air 2 03/31/24 04:00 03/31/24 05:17 03/31/24 04:00 03/31/24 05:17 03/31/24 04:00 03/31/24 04:00 03/30/24 08:00 Narrative Exam General: Alert and oriented x3. No acute distress, cooperative Eyes: Pupils are equal and reactive to light bilaterally HEENT: Atraumatic, normocephalic. No JVD noted. Mucosa moist. Left side neck bandage. Cardiovascular: Normal S1 and S2. Regular rate and rhythm. No pitting edema Respiratory: Lungs are clear to auscultation bilaterally. No wheezing or crackles heard. Abdomen: Soft, nontender, not distended, normal bowel sounds. Skin: Warm to touch, dry, no rashes noted Musculoskeletal: No gross injuries. Able to move all 4 extremities. Neuro: global aphasia resolved, no other focal neuro deficits, normal movement and strenght in U/LE Psych: Normal affect and mood Results Labs 03/31/24 05:20 04/01/24 09:14 Labs: Short CBC 03/31/24 Range/Units 05:20 WBC 7.0 (3.6-11.0) Thou/mm3 Hgb 10.2 L (12.0-16.0) g/dL Hct 31.8 L (36.0-46.0) % Plt Count 336 (140-440) Thou/mm3 BMP 03/31/24 05:20 Sodium 137 Potassium 3.8 Chloride 106 Carbon Dioxide 22.7 BUN 46 H Creatinine 2.0 H Glucose 93 Calcium 9.2 Liver Function 03/31/24 Range/Units 05:20 Total Bilirubin 0.3 (0.3-1.2) mg/dL AST 25 (0-34) U/L ALT 20 (10-49) U/L Alkaline Phosphatase 78 (46-116) U/L Albumin 3.9 (3.4-4.8) gm/dL Quality Measures Quality Measures none Medications Home Medications and Allergies Home Medications ?Medication ?Instructions ?Recorded ?Confirmed ?Type aspirin 81 mg tablet,delayed mg 03/26/24 History release lisinopril 20 mg tablet mg 03/26/24 History Allergies Allergy/AdvReac Type Severity Reaction Status Date / Time No Known Allergies Allergy Verified 03/25/24 21:10 Visit Medications Acetaminophen (Acetaminophen 325 Mg Tablet) 650 mg PO Q6H PRN PRN Reason: Pain 1-3 or Fever >100.3 Stop: 04/24/24 21:37 Amlodipine Besylate (Amlodipine Besylate 5 Mg Tablet) 10 mg PO QDAY [facility] Stop: 04/29/24 16:44 Last Admin: 03/30/24 18:37 Dose: 10 mg Aspirin (Aspirin Ec 81 Mg Tabec) 81 mg PO QDAY [facility] Stop: 04/29/24 08:59 Last Admin: 03/30/24 08:59 Dose: 81 mg Clopidogrel Bisulfate (Clopidogrel Bisulfate 75 Mg Tablet) 75 mg PO QDAY [facility] Stop: 04/26/24 14:29 Last Admin: 03/30/24 08:57 Dose: 75 mg Dextrose (Dextrose 50%-Water Inj 50 Ml Syringe) 50 ml IV Q15MIN PRN PRN Reason: BG <50 OR BG <70 & pt unresponsive Stop: 04/24/24 22:06 Glucagon (Glucagon Inj 1 Mg Vial) 1 mg IM Q15MIN PRN PRN Reason: BG <70, and no IV access Hydralazine HCl (Hydralazine Hcl 25 Mg Tablet) 25 mg PO TID [facility] Stop: 04/29/24 21:59 Last Admin: 03/31/24 05:17 Dose: Not Given Insulin Human Lispro (Insulin Lispro (Admelog) 1 Unit/0.01 Ml Unit) 0 unit SC ACHS [facility]; Protocol Stop: 04/25/24 11:29 Last Admin: 03/31/24 07:45 Dose: Not Given Metoprolol Tartrate (Metoprolol Tartrate 25 Mg Tablet) 12.5 mg PO BID [facility] Stop: 04/29/24 11:49 Last Admin: 03/30/24 20:00 Dose: 12.5 mg Ondansetron HCl (Ondansetron Inj 2 Mg/Ml Inj 2 Ml) 4 mg IV Q4HR PRN PRN Reason: NAUSEA OR VOMITING Stop: 04/24/24 14:03 Pharmacy Consult (Pharmacy To Consult Pneumovacc) 1 each XX PRN PRN PRN Reason: CONSULT Stop: 04/25/24 00:16 Sennosides (Senna Tablet) 1 tab PO QDAY [facility]; Protocol Stop: 04/25/24 08:59 Last Admin: 03/30/24 08:58 Dose: 1 tab Discontinued Medications Amlodipine Besylate (Amlodipine Besylate 5 Mg Tablet) 10 mg PO QDAY [facility] Stop: 04/25/24 08:59 Last Admin: 03/26/24 08:30 Dose: 10 mg Amlodipine Besylate (Amlodipine Besylate 5 Mg Tablet) 10 mg PO QDAY [facility] Stop: 04/26/24 09:14 Last Admin: 03/28/24 07:54 Dose: 10 mg Aspirin (Aspirin Ec 81 Mg Tabec) 81 mg PO X1 ONE Stop: 03/25/24 20:25 Last Admin: 03/25/24 21:07 Dose: 81 mg Aspirin (Aspirin Ec 81 Mg Tabec) 81 mg PO QDAY [facility] Stop: 04/25/24 08:59 Last Admin: 03/29/24 09:25 Dose: 81 mg Aspirin (Aspirin 81 Mg Chew) 243 mg PO X1 ONE Stop: 03/28/24 13:16 Last Admin: 03/28/24 13:40 Dose: 243 mg Aspirin (Aspirin 325 Mg Tablet) 325 mg PO QDAY [facility] Stop: 04/29/24 08:59 Aspirin (Aspirin 325 Mg Tablet) 81 mg PO QDAY [facility] Stop: 04/29/24 08:59 Atorvastatin Calcium (Atorvastatin Calcium 20 Mg Tablet) 80 mg PO HS [facility] Stop: 04/25/24 20:59 Last Admin: 03/29/24 20:27 Dose: 80 mg Dextrose (Dextrose 50%-Water Inj 50 Ml Syringe) 25 ml IV Q15MIN PRN PRN Reason: BG 50-70 responsive npo pt Stop: 04/24/24 22:06 Hydralazine HCl (Hydralazine Inj 20 Mg/Ml Vial) 10 mg IV Q4HR PRN PRN Reason: SBP >165 Stop: 04/26/24 09:27 Last Admin: 03/27/24 16:55 Dose: 10 mg Hydralazine HCl (Hydralazine Hcl 25 Mg Tablet) 100 mg PO BID [facility] Stop: 04/27/24 09:59 Last Admin: 03/28/24 10:09 Dose: 100 mg Sodium Chloride (Ns) 1,000 mls @ 80 mls/hr IV .[id number] ONE Stop: 03/26/24 10:14 Last Infusion: 03/26/24 10:56 Dose: Infused Magnesium Sulfate (Magnesium Sulfate Ivpb) 2 gm in 50 mls @ 25 mls/hr IV X1 ONE Stop: 03/26/24 10:18 Last Infusion: 03/26/24 11:07 Dose: Infused Sodium Chloride (Ns) 1,000 mls @ 80 mls/hr IV .[id number] [facility] Stop: 04/25/24 10:23 Last Admin: 03/27/24 11:20 Dose: 80 mls/hr Sodium Chloride (Ns) 1,000 mls @ 88 mls/hr IV .[id number] [facility] Stop: 03/28/24 01:37 Last Admin: 03/27/24 14:30 Dose: Not Given Sodium Chloride (Ns) 1,000 mls @ 999 mls/hr IV .[id number] ONE Stop: 03/28/24 14:07 Last Admin: 03/28/24 13:26 Dose: 999 mls/hr Sodium Chloride (Ns) 1,000 mls @ 80 mls/hr IV .[id number] ONE Stop: 03/29/24 01:36 Last Admin: 03/28/24 15:28 Dose: 80 mls/hr Insulin Human Regular (Insulin Hum Regular 1 Unit/0.01 Ml (Per Unit)) 0 unit SC AC [facility]; Protocol Stop: 04/25/24 07:29 Last Admin: 03/26/24 07:37 Dose: Not Given Labetalol HCl (Labetalol Inj 5 Mg/Ml Vial 20 Ml) 20 mg IVP X1 ONE Stop: 03/25/24 18:44 Last Admin: 03/25/24 18:48 Dose: 20 mg Metoprolol Succinate (Metoprolol Succinate Xl 25 Mg Tabcr) 50 mg PO QDAY [facility] Stop: 04/26/24 09:29 Last Admin: 03/28/24 07:53 Dose: 50 mg Metoprolol Tartrate (Metoprolol Tartrate 25 Mg Tablet) 12.5 mg PO BID [facility] Stop: 04/24/24 21:59 Last Admin: 03/26/24 08:30 Dose: 12.5 mg Metoprolol Tartrate (Metoprolol Tartrate 25 Mg Tablet) 25 mg PO QDAY [facility] Stop: 04/26/24 09:29 Pneumococcal Polyvalent Vaccine (Pneumoc 20-Kathrine Conj-Dip Crm/Pf 0.5 Ml Syringe) 0.5 ml IMi .ONCE ONE Stop: 03/26/24 11:01 Last Admin: 03/26/24 11:26 Dose: 0.5 ml Assessment & Plan Plan Summary: Ms. Humphrey is a 63-year-old female with past medical history of hypertension, diabetes, CVA who presented to ED on 03/25/2024 with complaint of jumbled speech. Patient's chief complaints were words not coming out right which he initially attributed to a tiredness, stroke alert was called in ED, patient does report that she had a stroke previously and May, she was admitted to [facility] in [place], patient recently moved to [place]. She reported that she was ignoring her diabetes and was noncompliant before May 2023, started taking her medication for diabetes after the stroke regularly. Patient was admitted for stroke workup. Nephrology consulted for suspicion of WALLACE on CKD. #WALLACE on CKD #Possible CKD 2/2 diabetic nephropathy -Patient was previously noncompliant with diabetes, reports having diabetes mellitus for 10 years, started taking medications regularly after she had a stroke in May. -On admission BUN 38, creatinine 2.1, GFR 26 Plan: -Ordered renal ultrasound -Ordered uric acid, parathyroid, vit D -Ordered urine analysis, urine protein/ creatinine ratio -Advised patient to follow-up closely outpatient with a degreasing solution mixer after discharge #CVA #History of CVA #Hypertensive emergency VS urgency (resolved) #Hx HTN, HLD #History of diabetes # Normocytic anemia #Left neck ulcer Management as per primary team Case discussed with Attending Dr. Carmichael. Prabhjot Jaeger PGY1 Attending Provider Attestation/Addendum Patient seen and examined with resident physician Dr. Jaeger. Note reviewed, agree with findings and recommendations. Patient from [place]. Suspect patient has underlying CKD from diabetic nephropathy. Patient has diabetes for more than 10 years. Ordered CKD labs. She is going to follow-up with one of the degreasing solution mixer in [place]. Adjusted her blood pressure medications to hydralazine, nifedipine, metoprolol. Once creatinine stabilized will need to add STIVEN or ARB's. Thank you Dr. Owen for allowing me to participate in the care of Ms. Humphrey
[2024-03-31] MEDS: amLODIPine BESYLATE 5 MG TABLET 10 MG PO (08:14)
[2024-03-31] MEDS: SENNA TABLET 1 TAB PO (08:14)
[2024-03-31] MEDS: ASPIRIN EC 81 MG TABEC PO (08:14)
[2024-03-31] MEDS: CLOPIDOGREL BISULFATE 75 MG TABLET PO (08:14)
[2024-03-31] MEDS: METOPROLOL TARTRATE 25 MG TABLET 12.5 MG PO (08:21)
--- NOTE | 2024-03-31 09:27 | PC.SS ---
Follow up note: Patient to d/c home today. Physician states blood pressure controlled.
--- NOTE | 2024-03-31 09:57 | XR_ITS ---
Examination: Retroperitoneal ultrasound, complete Technique: Multiple high resolution grayscale images of the retroperitoneum obtained, including kidneys and bladder. Exam date and time:March 31, 2024 1035 hours INDICATIONS: Diagnosis acute renal insufficiency on laboratory examination March 31, 2024, creatinine 2.0, history CVA FINDINGS: Right kidney 11.3 x 5.3 x 4.8 cm cortex 1.3 cm Left kidney 11.0 x 5.8 x 5.2 cm renal cortex 1.5 cm Mild bilateral renal parenchymal scar formation No hydronephrosis No bladder mass or bladder calculi Bladder prevoid volume 74.5 cc IMPRESSION: Bilateral renal cortical thinning Mild bilateral renal parenchymal scar formation No hydronephrosis
[2024-03-31 10:32] LABS: Uric Acid 7.5 mg/dL (3.1-7.8)
[2024-03-31 10:35] LABS: Parathyroid Hormone Intact 77.5 pg/ml (18.5-88.0)
[2024-03-31] MEDS: Lisinopril 2.5 MG TABLET 10 MG PO (11:42)
[2024-03-31] MEDS: NIFEdipine XL 30 MG TABCR PO (15:57)
[2024-03-31] MEDS: hydrALAZINE HCL 25 MG TABLET 50 MG PO ×2 (15:58→23:47)
--- NOTE | 2024-03-31 16:37 | PC.NURSE ---
pt mars Humphrey got mad because This RN would not give her any information regarding pt, pt POC is Amelie
--- NOTE | 2024-03-31 16:43 | ESPR_ITS ---
Documentation for date of: 03/31/24 Subjective Subjective Interval history: Patient was seen and examined at bedside. No acute events overnight. Patient denies any new episodes of aphasia. Per in-house neurology has suggested to slowly decrease blood pressure to 140s. Patient on metoprolol tartrate 12.5 BID home dose + hydralazine TID + amlodipine HS Nephrology consulted for optimization antihypertensives in the setting of underlying CKD stage IV Will continue with Aspirin 81 mg + Plavix 75 + atorvastatin 80 mg daily. Anticipate discharge in next 24 hours once blood pressure well controlled, goal <140/90 Exam Vital Signs Temp Pulse Resp BP Pulse Ox O2 Del Method O2 Flow Rate 97.1 F 75 18 161/78 H 97 Room Air 2 03/31/24 16:00 03/31/24 16:33 03/31/24 16:00 03/31/24 16:00 03/31/24 16:00 03/31/24 16:00 03/30/24 08:00 Narrative Exam Constitutional Alert, oriented x3 and comfortable HEENT Vision grossly intact. Patent nares. Trachea midline. Respiratory Chest normal on inspection and clear to auscultation bilaterally. Cardiovascular S1 and S2 audible, RRR. No murmurs or carotid bruit. No gross JVD. Abdominal Soft and non tender to palpation in all quadrants. BS + Genitourinary No bladder tenderness, no flank pain. Normal to palpation. Musculoskeletal Extremities tone within normal limits. No LE edema. Neurological CN II - XII grossly intact. Extremity motor and sensation grossly intact. Skin Warm, dry and intact. No apparent lesions. Psychiatric Patient has a good affect, is cooperative. Objective Labs 03/31/24 05:20 04/01/24 09:14 Labs: Laboratory Results - last 24 hr 03/31/24 05:20 WBC 7.0 RBC 3.72 L Hgb 10.2 L Hct 31.8 L MCV 86 MCH 27.4 MCHC 32.1 RDW Std Deviation 39.1 Plt Count 336 Neut % (Auto) 71 Lymph % (Auto) 14 [place] % (Auto) 8 Eos % (Auto) 6 Baso % (Auto) 1 Neut # (Auto) 5.0 Lymph # (Auto) 1.0 [place] # (Auto) 0.6 Eos # (Auto) 0.4 Baso # (Auto) 0.1 Immature Gran # (Auto) 0.04 H Absolute Nucleated RBC 0.00 Immature Gran % 1 H Nucleated RBC % 0 Sodium 137 Potassium 3.8 Chloride 106 Carbon Dioxide 22.7 Anion Gap 8 BUN 46 H Creatinine 2.0 H Estim Creat Clear Calc 31.6 L eGFR 28 L BUN/Creatinine Ratio 23 H Glucose 93 Calculated Osmolality 285 Uric Acid 7.5 Calcium 9.2 Corrected Calcium 9.3 Total Bilirubin 0.3 AST 25 ALT 20 Alkaline Phosphatase 78 Total Protein 7.1 Albumin 3.9 Globulin 3.2 Albumin/Globulin Ratio 1.2 PTH Intact 77.5 Quality Measures Quality Measures none Assessment & Plan Assessment Current Active Medications: Generic Name Dose Route Start Last Admin Trade Name Freq PRN Reason Stop Dose Admin Acetaminophen 650 mg 03/25/24 21:38 Acetaminophen 325 Mg Tablet PO 04/24/24 21:37 Q6H PRN Pain 1-3 or Fever >100.3 Aspirin 81 mg 03/30/24 09:00 03/31/24 08:14 Aspirin Ec 81 Mg Tabec PO 04/29/24 08:59 81 mg QDAY RUSLAN Administration Clopidogrel Bisulfate 75 mg 03/27/24 14:30 03/31/24 08:14 Clopidogrel Bisulfate 75 Mg Tablet PO 04/26/24 14:29 75 mg QDAY RUSLAN Administration Dextrose 50 ml 03/25/24 22:07 Dextrose 50%-Water Inj 50 Ml Syringe IV 04/24/24 22:06 Q15MIN PRN BG <50 OR BG <70 & pt unresponsive Glucagon 1 mg 03/25/24 22:07 Glucagon Inj 1 Mg Vial IM Q15MIN PRN BG <70, and no IV access Hydralazine HCl 50 mg 03/31/24 14:30 03/31/24 15:58 Hydralazine Hcl 25 Mg Tablet PO 04/30/24 14:29 50 mg TID RUSLAN Administration Insulin Human Lispro 0 unit 03/26/24 11:30 03/31/24 11:38 Insulin Lispro (Admelog) 1 Unit/0.01 Ml Unit SC 04/25/24 11:29 Not Given ACHS [facility] Protocol Metoprolol Tartrate 25 mg 03/31/24 21:00 Metoprolol Tartrate 25 Mg Tablet PO 04/30/24 20:59 BID RUSLAN Nifedipine 30 mg 03/31/24 14:30 03/31/24 15:57 Nifedipine Xl 30 Mg Tabcr PO 04/30/24 14:29 30 mg QDAY RUSLAN Administration Ondansetron HCl 4 mg 03/25/24 14:04 Ondansetron Inj 2 Mg/Ml Inj 2 Ml IV 04/24/24 14:03 Q4HR PRN NAUSEA OR VOMITING Pharmacy Consult 1 each 03/26/24 00:17 Pharmacy To Consult Pneumovacc XX 04/25/24 00:16 PRN PRN CONSULT Sennosides 1 tab 03/26/24 09:00 03/31/24 08:14 Senna Tablet PO 04/25/24 08:59 1 tab QDAY RUSLAN Administration Protocol Plan In summary: 63-year-old female PMHx of HTN, CVA, DM, presented with 3 days of jumbled speech. Admitted for acute CVA versus TIA. CTA showed bilateral small basal ganglia infarct of undetermined age. Currently on statin and ASPIRIN. Pending echocardiogram and MRI. Neurology, Dr. Calhoun following, appreciate recommendations. Patient overall improving, symptoms nearly resolved. 1. Acute ischemic multi-infarct stroke 2. History of CVA secondary to 3. Hypertensive emergency VS urgency (resolved) in the setting of 4. Essential HTN 5. HLD 6. CKD stage IV Presenting with 3 days of jumbled without focal neurological. Hx of CVA in May with right-sided deficit, started on blood thinners in the hospital, but wasn't continued outpatient. Head CT bilateral small basal ganglia infarct undetermined age. EKG sinus rhythm. History of hypertension, recently started on AMLODIPINE, LISINOPRIL, METOPROLOL. Admission SBP 200, improved with current regimen, currently BP 150/77, HR 65. Neurology following, recommended ASPIRIN and MRI. ? MRI showed multiple acute infarcts in left posterior temporal, parietal, left occipital lobe. Occlusions in the M1 segment of left MCA. - LDL 130, HDL 32, cholesterol 188. A1c 6.2, TSH 1.07 - Echo with bubble study negative for PFO - CKD stage IV : Cr 1.9 - 2.2 baseline, GFR 20s - BP 140-160s on home Metoprolol Tart BID Plan: - On aspirin to 81mg daily + Plavix 75 mg daily for 90 days per Neuro recommendations - Started ATORVASTATIN 80 mg daily - Nephrology consulted, appreciate recommendations. Started on Nifedipine 30mg daily + Hydralazine 50mg TID - Continue home dose metoprolol tartrate 12.5 twice daily - Increase oral fluid intake with 2 to 3 L/day - Renally dose meds, avoid overdiuresis and NEPHROTOXINS - Hold home lisinopril until evaluation by nephrology 6. T2 NIDDM A1c 6.2 this visit. GLUCOSE wnl Plan: ? Accu-Cheks ? INSULIN sliding scale 7. Normocytic anemia Hb 9.8, MCV 88. Plan: - Follow-up outpatient for workup of anemia - Ferrous sulfate 325 daily - Daily nephro-kristofer started 8. Left neck ulcer Left side of the neck fold ulcer, chronic 2+ years which started as a blister that opened up and increase in size. Painless and nondraining. Has biopsy scheduled outpatient. Plan: ? Wound care for now ? Continue follow-up outpatient with PCP Health maintenance Disposition: Tele for CVA workup. Nephrology recs for HTN management in setting of CKD Diet: CHO consistent GI prophylaxis: Not indicated DVT prophylaxis: SCDs Antibiotics: Not indicated CODE STATUS: Full code Plan of care discussed with attending Smith Ramirez M.D. PGY2 Attending Provider Attestation/Addendum I have discussed and was present for the essential components of the history, physical examination, diagnosis, and treatment plan with the resident. I agree with the patient's care as documented by the resident and amended herein by me. Mg Kearney DO. Although this document has been carefully reviewed, there may still be some phonetic and other typographical errors. These errors are purely grammatical due to imperfections in the software program and should not be construed in any way to compromise the substance of the patient's medical care during this visit.
--- NOTE | 2024-03-31 18:25 | ESPR_ITS ---
Documentation for date of: 03/31/24 Subjective Subjective Interval history: No overnight events, patient able to walk, no weakness no focal deficits, denies other episodes of slurred speech/trouble finding words Exam Vital Signs Temp Pulse Resp BP Pulse Ox O2 Del Method O2 Flow Rate 97.1 F 75 18 161/78 H 97 Room Air 2 03/31/24 16:00 03/31/24 16:33 03/31/24 16:00 03/31/24 16:00 03/31/24 16:00 03/31/24 16:00 03/30/24 08:00 Narrative Exam Constitutional Alert, oriented x3 and obese HEENT Vision grossly intact. Patent nares. Trachea midline. Respiratory Chest normal on inspection and clear to auscultation bilaterally. Cardiovascular S1 and S2 audible, RRR. No murmurs or carotid bruit. No gross JVD. Abdominal Soft and non tender to palpation in all quadrants. BS + Genitourinary No bladder tenderness, no flank pain. Normal to palpation. Musculoskeletal Extremities tone within normal limits. No LE edema. Neurological CN II - XII grossly intact. Extremity motor and sensation grossly intact. Skin Warm, dry and intact. No apparent lesions. Psychiatric Patient has a good affect, is cooperative. Objective Labs 03/31/24 05:20 04/01/24 09:14 Labs: Laboratory Results - last 24 hr 03/31/24 05:20 WBC 7.0 RBC 3.72 L Hgb 10.2 L Hct 31.8 L MCV 86 MCH 27.4 MCHC 32.1 RDW Std Deviation 39.1 Plt Count 336 Neut % (Auto) 71 Lymph % (Auto) 14 [place] % (Auto) 8 Eos % (Auto) 6 Baso % (Auto) 1 Neut # (Auto) 5.0 Lymph # (Auto) 1.0 [place] # (Auto) 0.6 Eos # (Auto) 0.4 Baso # (Auto) 0.1 Immature Gran # (Auto) 0.04 H Absolute Nucleated RBC 0.00 Immature Gran % 1 H Nucleated RBC % 0 Sodium 137 Potassium 3.8 Chloride 106 Carbon Dioxide 22.7 Anion Gap 8 BUN 46 H Creatinine 2.0 H Estim Creat Clear Calc 31.6 L eGFR 28 L BUN/Creatinine Ratio 23 H Glucose 93 Calculated Osmolality 285 Uric Acid 7.5 Calcium 9.2 Corrected Calcium 9.3 Total Bilirubin 0.3 AST 25 ALT 20 Alkaline Phosphatase 78 Total Protein 7.1 Albumin 3.9 Globulin 3.2 Albumin/Globulin Ratio 1.2 PTH Intact 77.5 Quality Measures Quality Measures none Assessment & Plan Assessment Current Active Medications: Generic Name Dose Route Start Last Admin Trade Name Freq PRN Reason Stop Dose Admin Acetaminophen 650 mg 03/25/24 21:38 Acetaminophen 325 Mg Tablet PO 04/24/24 21:37 Q6H PRN Pain 1-3 or Fever >100.3 Aspirin 81 mg 03/30/24 09:00 03/31/24 08:14 Aspirin Ec 81 Mg Tabec PO 04/29/24 08:59 81 mg QDAY RUSLAN Administration Atorvastatin Calcium 80 mg 03/31/24 21:00 Atorvastatin Calcium 20 Mg Tablet PO 04/30/24 20:59 HS RUSLAN Clopidogrel Bisulfate 75 mg 03/27/24 14:30 03/31/24 08:14 Clopidogrel Bisulfate 75 Mg Tablet PO 04/26/24 14:29 75 mg QDAY RUSLAN Administration Dextrose 50 ml 03/25/24 22:07 Dextrose 50%-Water Inj 50 Ml Syringe IV 04/24/24 22:06 Q15MIN PRN BG <50 OR BG <70 & pt unresponsive Glucagon 1 mg 03/25/24 22:07 Glucagon Inj 1 Mg Vial IM Q15MIN PRN BG <70, and no IV access Hydralazine HCl 50 mg 03/31/24 14:30 03/31/24 15:58 Hydralazine Hcl 25 Mg Tablet PO 04/30/24 14:29 50 mg TID RUSLAN Administration Insulin Human Lispro 0 unit 03/26/24 11:30 03/31/24 17:26 Insulin Lispro (Admelog) 1 Unit/0.01 Ml Unit SC 04/25/24 11:29 Not Given ACHS [facility] Protocol Metoprolol Tartrate 25 mg 03/31/24 21:00 Metoprolol Tartrate 25 Mg Tablet PO 04/30/24 20:59 BID RUSLAN Nifedipine 30 mg 03/31/24 14:30 03/31/24 15:57 Nifedipine Xl 30 Mg Tabcr PO 04/30/24 14:29 30 mg QDAY RUSLAN Administration Ondansetron HCl 4 mg 03/25/24 14:04 Ondansetron Inj 2 Mg/Ml Inj 2 Ml IV 04/24/24 14:03 Q4HR PRN NAUSEA OR VOMITING Pharmacy Consult 1 each 03/26/24 00:17 Pharmacy To Consult Pneumovacc XX 04/25/24 00:16 PRN PRN CONSULT Sennosides 1 tab 03/26/24 09:00 03/31/24 08:14 Senna Tablet PO 04/25/24 08:59 1 tab QDAY RUSLAN Administration Protocol Plan 63-year-old female PMHx of HTN, CVA, DM, presented with 3 days of jumbled speech. Admitted for acute CVA #Acute CVA -Presented with slurred speech, word finding difficulty, initial NIHSS 2 - MRI brain showed multiple acute infarcts left posterior temporal, parietal and left occipital lobe; MRA showed Occlusions M1 segment left middle cerebral artery. -Echocardiogram: Negative bubble study. No evidence of PFO or ASD. -Continue with aspirin 81 mg, Plavix 75 mg and statin. Patient's care discussed with attending physician, Dr Lj Jeffrey MD PGY3 Attending Provider Attestation/Addendum Patient was seen and examined at the bedside, agreed with resident's findings, assessment and mgt. Keep the BP controlled better.
[2024-03-31] MEDS: ATORVASTATIN CALCIUM 20 MG TABLET 80 MG PO (20:38)
[2024-03-31] MEDS: METOPROLOL TARTRATE 25 MG TABLET PO (20:38)
[2024-04-01] VITALS (8 sets, daily range): BP systolic 142–153; BP diastolic 65–85; PULSE 59–67; RESP 18–20; TEMP 36.1–37.2; O2SAT 94–97
[2024-04-01 05:13] LABS: Collection Type, Urine Clean Catch
[2024-04-01 05:20] LABS: Bilirubin,Urine Negative (Negative); Blood,Urine Negative (Negative); Clarity,Urine Turbid (Clear/Hazy); Color,Urine Lt-Yellow (Lt Yel-Yel); Glucose, Urine Negative (Negative); Hyaline Casts,Urine < 1 /hpf (0-1); Ketones,Urine Negative (Negative); Leukocyte Esterase,Urine Positive (Negative); Nitrite,Urine Negative (Negative); PH,Urine 5.5 (5.0-7.0); Protein,Urine 1+ (Neg - Trace); RBC,Urine 3 /hpf (0-3); Specific Gravity,Urine 1.015 (1.001-1.035); Squamous Epithelial Cell,Urine 2 /hpf (0-5); Urobilinogen,Urine Negative mg/dL (0.0-1.0); WBC,Urine 30 /hpf (0-5)
[2024-04-01] MEDS: hydrALAZINE HCL 25 MG TABLET 50 MG PO (05:22)
[2024-04-01 05:47] LABS: Creatinine MALB Rnd Ur 107 mg/dL (30-125); Creatinine,Random Urine 107 mg/dL (30-125); Microalbumin Creat Ratio 434 mg/gCrea (<30); Microalbumin, Random Urine 464 mg/L (0-300); Protein Total, Random Urine 99 mg/dL (1-14)
--- NOTE | 2024-04-01 07:43 | PD.RESPRO ---
Documentation for date of: 04/01/24 Subjective Subjective Interval history: Ms. Humphrey is a 63-year-old female with past medical history of hypertension, diabetes, CVA who presented to ED on 03/25/2024 with complaint of jumbled speech. Patient's chief complaints were words not coming out right which he initially attributed to a tiredness, stroke alert was called in ED, patient does report that she had a stroke previously and May, she was admitted to [facility] in [place], patient recently moved to [place]. She reported that she was ignoring her diabetes and was noncompliant before May 2023, started taking her medication for diabetes after the stroke regularly. Patient was admitted for stroke workup. Nephrology consulted for suspicion of WALLACE on CKD. ED Course: In the ED, patient was afebrile, hypertensive with SBP> 200, saturating 99% on room air. Head CT showed bilateral small basal ganglia infarcts, age indeterminate, recommended to follow-up with MRI/MRA. As her symptoms have been already 4 days, teleneuro was not consulted when the ED neurologist Dr Calhoun was consulted who recommended to start the patient on aspirin 81 mg and admitted for further workup. CBC had a WBC of 7.9 Hgb 9.7 and CMP was significant for BUN of 38 and creatinine 2.1, baseline unknown. Glucose was 126. The patient has been admitted for CVA workup/rule out. Home medication: Atorvastatin 80 mg, clopidogrel 75 mg, hydralazine 100 mg p.o. twice daily 03/31/2024: Patient seen at bedside, patient denies following up with any consultant technology in the past, reports that she started taking her diabetes medication regularly after last stroke in May, high suspicion of chronic kidney disease secondary to diabetic nephropathy, ordered further workup, advised patient to follow-up with primary care for nephrology follow-up outpatient [place]. 04/01/2024: Patient seen at bedside, has no current complaints. Patient's renal ultrasound shows bilateral cortical thinning, consistent with CKD changes. Patient has severe microalbuminuria, microalbumin creatinine ratio 434, uric acid 7.5, PTH 77.5. Patient needs close follow-up outpatient with consultant technology for further management of chronic kidney disease. Consider resuming lisinopril once patient is discharged in the outpatient setting. Patient's blood pressure around 146/85, optimized on hydralazine 50 mg 3 times daily, metoprolol 25 twice daily and nifedipine 30 daily. Otherwise patient is stable for discharge. Exam Vital Signs Temp Pulse Resp BP Pulse Ox O2 Del Method O2 Flow Rate 97.9 F 64 20 146/85 H 96 Room Air 2 04/01/24 04:00 04/01/24 07:34 04/01/24 04:00 04/01/24 05:22 04/01/24 04:00 04/01/24 04:00 03/30/24 08:00 Narrative Exam General: Alert and oriented x3. No acute distress, cooperative Eyes: Pupils are equal and reactive to light bilaterally HEENT: Atraumatic, normocephalic. No JVD noted. Mucosa moist. Left side neck bandage. Cardiovascular: Normal S1 and S2. Regular rate and rhythm. No pitting edema Respiratory: Lungs are clear to auscultation bilaterally. No wheezing or crackles heard. Abdomen: Soft, nontender, not distended, normal bowel sounds. Skin: Warm to touch, dry, no rashes noted Musculoskeletal: No gross injuries. Able to move all 4 extremities. Neuro: global aphasia resolved, no other focal neuro deficits, normal movement and strenght in U/LE Psych: Normal affect and mood Objective Labs 03/31/24 05:20 04/01/24 09:14 Labs: Laboratory Results - last 24 hr 03/31/24 04/01/24 05:20 04:46 Uric Acid 7.5 PTH Intact 77.5 Ur Collection Type Clean Catch Urine Color Lt-Yellow Urine Clarity Turbid A Urine pH 5.5 Ur Specific [place] 1.015 Urine Protein 1+ A Urine Glucose (UA) Negative Urine Ketones Negative Urine Blood Negative Urine Nitrite Negative Urine Bilirubin Negative Urine Urobilinogen (Auto) Negative Ur Leukocyte Esterase Positive Urine RBC 3 Urine WBC 30 H Ur Squamous Epith Cells 2 Urine Bacteria None Hyaline Casts < 1 Ur Random Creatinine 107 Ur Random Microalbumin 464 H U Random Total Protein 99 H U Creat (Microalbumin) 107 Microalb/Creat Ratio 434 H Quality Measures Quality Measures none Assessment & Plan Assessment Current Active Medications: Generic Name Dose Route Start Last Admin Trade Name Freq PRN Reason Stop Dose Admin Acetaminophen 650 mg 03/25/24 21:38 Acetaminophen 325 Mg Tablet PO 04/24/24 21:37 Q6H PRN Pain 1-3 or Fever >100.3 Aspirin 81 mg 03/30/24 09:00 03/31/24 08:14 Aspirin Ec 81 Mg Tabec PO 04/29/24 08:59 81 mg QDAY RUSLAN Administration Atorvastatin Calcium 80 mg 03/31/24 21:00 03/31/24 20:38 Atorvastatin Calcium 20 Mg Tablet PO 04/30/24 20:59 80 mg HS RUSLAN Administration Clopidogrel Bisulfate 75 mg 03/27/24 14:30 03/31/24 08:14 Clopidogrel Bisulfate 75 Mg Tablet PO 04/26/24 14:29 75 mg QDAY RUSLAN Administration Dextrose 50 ml 03/25/24 22:07 Dextrose 50%-Water Inj 50 Ml Syringe IV 04/24/24 22:06 Q15MIN PRN BG <50 OR BG <70 & pt unresponsive Glucagon 1 mg 03/25/24 22:07 Glucagon Inj 1 Mg Vial IM Q15MIN PRN BG <70, and no IV access Hydralazine HCl 50 mg 03/31/24 14:30 04/01/24 05:22 Hydralazine Hcl 25 Mg Tablet PO 04/30/24 14:29 50 mg TID RUSLAN Administration Insulin Human Lispro 0 unit 03/26/24 11:30 04/01/24 07:33 Insulin Lispro (Admelog) 1 Unit/0.01 Ml Unit SC 04/25/24 11:29 Not Given ACHS [facility] Protocol Metoprolol Tartrate 25 mg 03/31/24 21:00 03/31/24 20:38 Metoprolol Tartrate 25 Mg Tablet PO 04/30/24 20:59 25 mg BID RUSLAN Administration Nifedipine 30 mg 03/31/24 14:30 03/31/24 15:57 Nifedipine Xl 30 Mg Tabcr PO 04/30/24 14:29 30 mg QDAY RUSLAN Administration Ondansetron HCl 4 mg 03/25/24 14:04 Ondansetron Inj 2 Mg/Ml Inj 2 Ml IV 04/24/24 14:03 Q4HR PRN NAUSEA OR VOMITING Pharmacy Consult 1 each 03/26/24 00:17 Pharmacy To Consult Pneumovacc XX 04/25/24 00:16 PRN PRN CONSULT Sennosides 1 tab 03/26/24 09:00 03/31/24 08:14 Senna Tablet PO 04/25/24 08:59 1 tab QDAY RUSLAN Administration Protocol Plan Summary: Ms. Humphrey is a 63-year-old female with past medical history of hypertension, diabetes, CVA who presented to ED on 03/25/2024 with complaint of jumbled speech. Patient's chief complaints were words not coming out right which he initially attributed to a tiredness, stroke alert was called in ED, patient does report that she had a stroke previously and May, she was admitted to [facility] in [place], patient recently moved to [place]. She reported that she was ignoring her diabetes and was noncompliant before May 2023, started taking her medication for diabetes after the stroke regularly. Patient was admitted for stroke workup. Nephrology consulted for suspicion of WALLACE on CKD. #WALLACE on CKD #Possible CKD 2/2 diabetic nephropathy -Patient was previously noncompliant with diabetes, reports having diabetes mellitus for 10 years, started taking medications regularly after she had a stroke in May. -On admission BUN 38, creatinine 2.1, GFR 26 -Renal US shows Bilateral renal cortical thinning, Mild bilateral renal parenchymal scar formation; CKD Changes noted -Uric Acid 7.5, PTH 77.5 -Urine protein 99, Urine microalbumin 464, U Cr 107, Micro albumin/Cr Ratio 434 mg/gm (A3) -GFR throughout hospital course improved to 28, CKD Stage IV Plan: -Suspicion of CKD G4 A3 secondary to Diabetes, should follow up outpatient with PCP with repeat renal panel. -Consider resuming lisinopril outpatient after follow-up with nephrology. -Advised patient to follow-up closely outpatient with a consultant technology after discharge #Hypertension -Patient on lisinopril 20mg, metoprolol tartrate 12.5 BID and amlodipine 10mg at home -Optimized Medications to Metoprolol 25 BID, Nefedipine 30 QD and Hydralazine 50 PO TID #CVA #History of CVA #Hypertensive emergency VS urgency (resolved) #HLD #History of diabetes # Normocytic anemia #Left neck ulcer Management as per primary team Case discussed with Attending Dr. Carmichael. Prabhjot Jaeger PGY1 Attending Provider Attestation/Addendum Patient seen and examined with resident physician Dr. Jaeger. Note reviewed, agree with findings and recommendations. Patient possibly will be discharged today. Will follow-up with consultant technology in 1 to 2 weeks for possible CKD.
[2024-04-01] MEDS: METOPROLOL TARTRATE 25 MG TABLET PO (08:55)
[2024-04-01] MEDS: CLOPIDOGREL BISULFATE 75 MG TABLET PO (08:55)
[2024-04-01] MEDS: ASPIRIN EC 81 MG TABEC PO (08:55)
[2024-04-01] MEDS: SENNA TABLET 1 TAB PO (08:55)
[2024-04-01] MEDS: NIFEdipine XL 30 MG TABCR PO (08:55)
[2024-04-01 10:24] LABS: Anion Gap 10 (7-16); BUN/Creatinine Ratio 25 Ratio (12-20); Blood Urea Nitrogen 59 mg/dL (9-23); Calcium 9.2 mg/dL (8.3-10.6); Carbon Dioxide 21.8 mMol/L (20.0-31.0); Chloride 104 mMol/L (98-107); Creatinine (Component) 2.4 mg/dL (0.6-1.3); Estimated Creatinine Clearance 26.3 mL/min (>60); Glucose 177 mg/dL (74-106); Osmolality,Calculated 292 (275-295); Potassium 3.8 mMol/L (3.4-5.1); Sodium 136 mMol/L (136-145); eGFR 22 See Note
--- NOTE | 2024-04-01 12:07 | PD.RESDS ---
Planned Discharge Date 04/01/24 DS: Providers Provider Date of admission: 03/25/24 22:00 Primary care physician: Physician No Primary/Family Admitting Provider: Chace Owen MD Attending Provider on Admission: Ced Kearney DO Consults: 03/25/24 14:05 Consult to Neurology / Tele-Neurology Routine Comment: Expressive aphasia, last well-known time 4 days ag Consulting Provider: [facility] 03/25/24 20:27 Consult to Neurology / Tele-Neurology Stat Comment: CVA Consulting Provider: Yves Calhoun 03/25/24 21:44 Referral Physical Therapy Routine Comment: Physician Instructions: 03/25/24 22:58 Referral Speech Therapy Routine Comment: 03/26/24 00:28 [facility] Referral - Transportation Routine Comment: Positive screening for transportation needs. 03/26/24 00:29 Referral Registered Dietitian Routine Comment: Referral Wound Care Urgent Comment: 03/28/24 12:21 Consult to Neurology / Tele-Neurology Stat Comment: Consulting Provider: Yves Calhoun 03/30/24 20:36 Consult to Nephrology Routine Comment: possible CKD Consulting Provider: Charlie Carmichael Attending Provider on DC: Smith Padilla MD Discharging Provider: Smith Padilla MD DS: Diagnosis Problem List Completed Was Problem List Reviewed/Reconciled?: Yes Hospital Course Hospital Course Hospital course: Hospital Course: Ms Humphrey is a 63 year old female with a PMHx of HTN, HLD, DM2, prior RT hemispheric stroke, who was admitted 03/25 following for new onset aphasia. She was found to have a LT M1 MCA occlusion with multifocal distal MCA regions of diffusion restriction. Per Neurology recommendations, patient started on ASA, plavix and statin therapy. 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 Tele-neurology was consulted again, as per recommendations, we will continue with liberalized SBP goal 160-180mmHg. Repeat Head CT and MRIB show no changes, patient remains NIHSS 0. Per in house neurology recommendations, patient can safely be discharged home with DAPT and statin. ECHO with bubble study was negative for any PFO or ASD. Nephrology was consulted for CKD stage IV. Antihypertensives altered per nephrology recommendations, outpatient follow up advised. Problems on this admission: 1. Acute ischemic multi-infarct stroke 2. History of CVA , secondary to 3. Hypertensive emergency VS urgency (resolved), in the setting of 4. Essential HTN 5. HLD 6. CKD stage IV 7. T2 NIDDM 8. Normocytic anemia 9. Left neck ulcer Procedures: None Discharge instructions: - Follow up with PCP in 1-2 weeks. If you do not have one, please contact [facility] for appointment at [phone]. - Follow up with Neurology DR Calhoun in 1 week - Continue Atorvastatin 80 mg daily + Clopidogrel (Plavix) 75 mg daily + Aspirin 81mg daily - Follow up with Nephrology Dr Carmichael in 1 week from discharge for management of CKD. Stop lisinopril until evaluation by nephrology. - Increased metoprolol tartrate to 50 mg twice a day. - Started Hydralazine 50mg three times a day + Nifedipine 30mg daily for BP control. - Return to ED if symptoms return or worsen. We are grateful to be able to participate in Ms Humphrey's care. We wish her the best. - Smith Padilla MD Status at Discharge Cognitive/behavioral status at discharge: stable and returned to baseline Time Spent with Patient Time attestation: Total time spent providing and/or coordinating discharge services: more than 50% Quality: Stroke Pt Provided Written Stroke Discharge Instructions: No Exam Vital Signs Temp Pulse Resp BP Pulse Ox O2 Del Method O2 Flow Rate 96.9 F 59 L 18 149/68 H 94 L Room Air 2 04/01/24 08:00 04/01/24 11:23 04/01/24 08:00 04/01/24 08:55 04/01/24 08:00 04/01/24 08:00 03/30/24 08:00 Narrative Exam Constitutional Alert, oriented x3 and obese HEENT Vision grossly intact. Patent nares. Trachea midline. Respiratory Chest normal on inspection and clear to auscultation bilaterally. Cardiovascular S1 and S2 audible, RRR. No murmurs or carotid bruit. No gross JVD. Abdominal Soft and non tender to palpation in all quadrants. BS + Genitourinary No bladder tenderness, no flank pain. Normal to palpation. Musculoskeletal Extremities tone within normal limits. No LE edema. Neurological CN II - XII grossly intact. Extremity motor and sensation grossly intact. Skin Warm, dry and intact. No apparent lesions. Psychiatric Patient has a good affect, is cooperative. Discharge Plan Plan Patient Disposition: HOME (Self Care) Disposition Comment: Stable and back at baseline Patient condition on transfer: Stable Prescriptions/Referrals Prescriptions/Med Rec: New clopidogrel [Plavix] 75 mg tablet 75 mg PO QDAY 30 Days Qty: 30 0RF atorvastatin 80 mg tablet 80 mg PO HS 30 Days Qty: 30 0RF nifedipine 30 mg tablet extended release 30 mg PO QDAY 30 Days Qty: 30 0RF hydralazine 50 mg tablet 50 mg PO TID 30 Days Qty: 90 0RF metoprolol tartrate 25 mg tablet 25 mg PO BID 30 Days Qty: 60 0RF Continued aspirin 81 mg tablet,delayed release (/EC) Patient Comments: TAKE 1 TABLET BY MOUTH ONCE DAILY Held lisinopril 20 mg tablet Hold Instructions: Resume on 04/04/24. HOLD until follow up with PCP/Nephrology for CKD stage IV Patient Comments: TAKE 1 TABLET BY MOUTH ONCE DAILY Discontinued amlodipine 10 mg tablet Patient Comments: TAKE 1 TABLET BY MOUTH ONCE DAILY metoprolol tartrate 25 mg tablet Patient Comments: TAKE 1/2 (ONE-HALF) TABLET BY MOUTH TWICE DAILY Referrals: Bhavani Griffiths MD [Resident] - No Primary/Family,Physician [Primary Care Provider] - Yves Calhoun MD [Physician] - Charlie Carmichael MD [Physician] - Patient/Caregiver Discharge Instructions Meds to Beds: Yes Discharge Activity: as per physical therapy and resume usual activities Other Discharge Activity Instructions:: Follow up with PCP in 1-2 weeks. If you do not have one, please contact [facility] for appointment at [phone]. Follow up with Neurology DR Calhoun in 1 week Continue Atorvastatin 80 mg daily + Clopidogrel (Plavix) 75 mg daily + Aspirin 81mg daily Follow up with Nephrology Dr Carmichael in 1 week from discharge for management of CKD. Stop lisinopril until evaluation by nephrology. Increased metoprolol tartrate to 50 mg twice a day. Started Hydralazine 50mg three times a day + Nifedipine 30mg daily for BP control. Return to ED if symptoms return or worsen. Education Materials: Controlling High Blood Pressure, Hypertension and Kidney Disease, Discharge Instructions for Stroke Print Language: Uzbek Stand Alone Forms: Gretta Award Info., Patient Portal Info Letter Discharge Order Discharge Orders: Discharge (Routine); Ordered 04/01/24 Ordered By: Smith Padilla Quality Discharge Quality Measures VTE prophylaxis Attestestation MD Attestation I have discussed and was present for the essential components of the discharge history, physical examination, diagnosis, and discharge treatment plan with the resident. I agree with the patient's discharge care as documented by the resident and amended herein by me. Mg Kearney, . The patient understood all discharge instructions, all questions were answered satisfactorily. The patient was instructed to return to the Emergency Department is symptoms worsened or persisted. Patient was stable, afebrile tolerating p.o. intake at time of discharge. Although this document has been carefully reviewed, there may still be some phonetic and other typographical errors. These errors are purely grammatical due to imperfections in the software program and should not be construed in any way to compromise the substance of the patient's medical care during this visit.
== END 2024-04-01 12:14 | disposition home or self-care (01) | DRG 65 ==
LOC: SERX 14:55 → SERHOLD 22:01 → S2NX 23:07 → S3NX 03-28 10:46
PROVIDERS: Nurse Practitioner Family; Admitting Provider Internal Medicine; Emergency Provider Emergency Medicine; Visit Provider Student in an Organized Health Care Education/Training Program
DX: I63.512 Cerebral infarction due to unspecified occlusion or stenosis of left middle cerebral artery (principal); I16.1 Hypertensive emergency; N17.9 Acute kidney failure, unspecified; N18.4 Chronic kidney disease, stage 4 (severe); E11.22 Type 2 diabetes mellitus with diabetic chronic kidney disease; E78.5 Hyperlipidemia, unspecified; R47.01 Aphasia; R47.1 Dysarthria and anarthria; R29.700 NIHSS score 0; D63.1 Anemia in chronic kidney disease; L98.499 Non-pressure chronic ulcer of skin of other sites with unspecified severity; I10 Essential (primary) hypertension; Z23 Encounter for immunization; Z86.73 Personal history of transient ischemic attack (TIA), and cerebral infarction without residual deficits; Z56.0 Unemployment, unspecified; Z59.71 Insufficient health insurance coverage; Z79.02 Long term (current) use of antithrombotics/antiplatelets; Z79.82 Long term (current) use of aspirin; Z79.899 Other long term (current) drug therapy
CPT/HCPCS: 36415; 70450; 70544; 76770; 80048; 80053; 80061; 80307; 81001; 82043; 82570; 83036; 83735; 83970; 84100; 84156; 84443; 84484; 84550; 85025; 85610; 85730; 87086; 90677; 92610; 93005; 93306; 97161; 99285; J0360; J1815; J3475; J3490; J7030; A9270; J1920

== ENCOUNTER 2024-11-24 13:17 | Emergency (ER) | payer OTHER, SELFPAY ==
[2024-11-24 13:19] VITALS: BMI 32.8
--- NOTE | 2024-11-24 13:24 | PC.NURSE ---
DR. NEFF CAME TO TRIAGE DESK TO DO QUICK EVAL OF PT TO SEE IF STROKE ALERT NEEDED TO BE CALLED. SINCE NO ONE CAN VERIFY LAST KNOWN WELL, DR. NEFF STATES NO STROKE ALERT AT THIS TIME
--- NOTE | 2024-11-24 13:36 | PC.NURSE ---
PT AND HOME HEALTH WORKER CAME TO TRIAGE DESK TO SAY THEY WERE LEAVING. ASKED THEM TO WAIT AND ASKED DR. SELBY TO REEVALUATE THE PT
--- NOTE | 2024-11-24 13:42 | PC.NURSE ---
DR. SELBY SPOKE WITH PT FOR APPROXIMATELY [address] SELBY EXPLAINED ALL RISKS OF LEAVING INCLUDING HAVING ANOTHER STROKE OR . DR. SELBY HAD PT REPEAT RISKS, WHICH PT WAS ABLE TO DO. PT WITH SOME EXPRESSIVE APHASIA FROM PREVIOUS STROKE BUT ALSO TOLD NURSE RISKS THAT STATED. PT STILL NOT WANTING TO STAY AND SIGNED AMA FORM
--- NOTE | 2024-11-24 13:43 | EDRME_ITS ---
Rapid Medical Screening Exam RME Arrival date/time: 11/24/24 13:17 Chief Complaint: Neuro Symptoms/Deficit Time Seen by Provider: 11/24/24 13:43 RME Narrative: Patient is a 64-year-old female with medical history notable for cancer, prior strokes with baseline aphasia that in the emergency department concerns for acute worsening aphasia. By the time patient arrived, patient symptoms had resolved and she was back at her baseline. Unclear last known well, per the caregiver and may have been multiple days ago. Patient does not want to stay for further evaluation and workup. Patient was able to express to me clearly that she understands that she can have worsening symptoms, severe disability or if she does not stay in the emergency department for workup. I recommended that she stay to get CT brain's and labs. Despite my best efforts in the effor ts of nursing staff patient does not want to stay and has signed out AGAINST MEDICAL ADVICE. Patient does not want any further evaluation. Patient has capacity make her own decisions. Per the caregiver at bedside she has reiterated that the patient makes her own decisions, and that she is at her baseline neurologic functioning.
== END 2024-11-24 13:46 | disposition left against medical advice (07) ==
LOC: SERX 13:52
PROVIDERS: Emergency Provider Emergency Medicine
DX: R47.01 Aphasia (principal); Z53.29 Procedure and treatment not carried out because of patient's decision for other reasons
CPT/HCPCS: 99282

== ENCOUNTER 2024-12-14 10:01 | Outpatient (RCR) | payer MEDICAID, SELFPAY ==
--- NOTE | 2024-12-14 11:03 | CTCCONSULT_ITS ---
[facility] [address] [place], [place] [address] Consultation Note Date: 12/14/2024 MR#: [id number] Name: MARQUES SCHMID : 1960 Dx: C44.519 Basal cell carcinoma of skin of other part of trunk Identification. Patient with diagnosis of basal CA left clavicular neck. History of Present Illness: Patient is 64-year-old lady who was being considered for Mohs of a basal cell CA in the left clavicular area the neck. Punch biopsy was performed 08/31/2024. Path was basal CA nodular type with focal infiltrative pattern. 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 Due to a recent stroke and multiple health problems was delayed in seeking medical attention for this. Past Medical History: History of CVA with aphasia diabetic retinopathy type 2 diabetes Meds. Aspirin Plavix hydralazine amlodipine atorvastatin vitamins iron metoprolol doxazosin allergies none known Social History: Denies smoking drinking lives in [place] lives alone with pets Review of Systems: Has had some speech and ambulation difficulties since CVA about a year ago. Physical Exam: General: Adequate nourished appearing lady no acute distress HEENT: Easily visible and palpable left neck mass measuring about 8 x 5 cm with infiltrating and raised edges. There appears to be possible left supra Clave node palpable. Assessment: 1. Patient with basal CA nodular type with focal infiltrative pattern. This is fairly large as noted above with possible involvement of adjacent lymph node. Plan:1. Will need to get PET scan to make sure there is no regional or distant mets involvement. 2. Anticipate 15-20 fractions of 300 cGy per fraction delivering approximately 5000 to 5500 cGy to tumor site afterward.. Side effects explained. 3. Thank you very much for allowing me to evaluate and manage this patient. Cc: Mary Hylton MD [facility] [place] Electronically signed by: Jessee Alves MD, FEIR 12/14/2024 11:01 AM
== END 2025-01-02 23:59 | disposition home or self-care (01) ==
LOC: SCTC 10:01
PROVIDERS: PCP Family Medicine; Referring Provider Family Medicine; Visit Provider Radiology Therapeutic Radiology
DX: C44.41 Basal cell carcinoma of skin of scalp and neck (principal)
CPT/HCPCS: 99213; G0463

== ENCOUNTER → 2025-01-16 | Outpatient (CLI) | payer MEDICAID, SELFPAY ==
--- NOTE | 2025-02-06 14:00 | XR_ITS ---
EXAMINATION: PET/CT FUSION SKULL TO THIGH EXAM DATE AND TIME: March 08, 2025, 1147 hours INDICATIONS: Diagnosis basal cell skin cancer, staging prior to treatment CTDI:vol (mGy) 8.44 DLP: (mGycm) 770 PROCEDURE: 17.2 mCi FDG was administered intravenously To allow for distribution and uptake of radiotracer, the patient was allowed to rest quietly in a shielded room. Imaging was performed on an integrated 16-slice PET/CT scanner, with scanning from the skull base to the mid thigh. Serum blood glucose at the time of the injection was measured 103 mg/dL. CT scanning was performed without oral or intravenous contrast material. FINDINGS: Head and Neck: Intensely hypermetabolic skin lesion lateral lower neck, axial images 64 through 80, measuring up to 9 mm in thickness No adjacent hypermetabolic lymphadenopathy Chest: There is no franco hypermetabolism in the chest. There are no pulmonary nodules. Abdomen and Pelvis: There is no franco hypermetabolism in retroperitoneal or pelvic chains. The spleen is normal in size and FDG avidity. Musculoskeletal: Marrow uptake is within normal range. IMPRESSION: Hypermetabolic skin lesion lower lateral skin of the left neck No hypermetabolic cervical lymphadenopathy
== END | disposition home or self-care (01) ==
PROVIDERS: PCP Family Medicine; Referring Provider Radiology Therapeutic Radiology; Visit Provider Radiology Therapeutic Radiology
DX: L98.8 Other specified disorders of the skin and subcutaneous tissue (principal); C44.519 Basal cell carcinoma of skin of other part of trunk
CPT/HCPCS: 78815; A9552

== ENCOUNTER 2025-01-23 07:37 | Outpatient (RCR) | payer MEDICAID, SELFPAY ==
--- NOTE | 2025-01-23 08:19 | CTCFLWUP_ITS ---
[facility] [address] [place], [place] [address] FOLLOW-UP NOTE Date: 01/23/2025 MR#: [id number] Name: MARQUES SCHMID : 1960 Dx: C44.519 Basal cell carcinoma of skin of other part of trunk Patient he is here for follow-up but due to technical factors a PET scan has been delayed. See the prominent left lower neck basal cell as noted previously. Patient told that systemic therapy may be necessary in addition to radiation but will wait till the PET scan complete. Treatment plan side effects of radiation discussed. Electronically signed by: Jessee Alves M.D. 01/23/2025 8:17 AM
--- NOTE | 2025-01-23 08:21 | CTCTXPLN_ITS ---
[facility] [address] [place], [place] [address] Physician Clinical Treatment Planning Note Date of Service: 01/23/2025 Name: MARQUES SCHMID : 1960 The patient has agreed to proceed with Radiation therapy. Tests and supporting medical records were interpreted to assist in defining the tumor location and extent of disease. Further imaging will be necessary to contour and delineate the volume to which the XRT will be provided. A. Treatment Intent: Curative B. Modality: 6 MV C. Requested Technique: VMAT D. Treatment Site: Left neck E. Critical structures to be contoured on plan: F. In order to accomplish this plan, I am ordering/Prescribing the followin. Simulations (s) will be performed to accomplish a reproducible treatment position, to determine optimal treatment portals/beam arrangements, to design beam modifying devices and verify treatment portals on patient prior to the commencement of Radiation Therapy. Left neck 2. Devices; for immobilization and beam shapin. CT Guidance for placement of XRT fernandez Scan area: 4. Portal images Frequency: 5. Invivo transit dose measurement once per week on all VMAT patients. 6. Special Physics Consult Requested for: 7. Other requests: Special procedure chemoradiation G. Dose Objectives: Curative Electronically signed by: Jessee Alves M.D. 01/23/2025 8:19 AM
--- NOTE | 2025-01-23 08:28 | CTCTXPLNST_ITS ---
Radiation Oncology Treatment Planning Sheet Name: MARQUES SCHMID MR#: [id number] : 1960 Dx: C44.519 Basal cell carcinoma of skin of other part of trunk Date of Service: 01/23/2025 Account #: ?? Pt Treatment Intent: curative palliative other: Stage: Procedure CPT # Ordered Spec. Procedure 52413 1 Robisn Complex (set-up) 75548 L neck/arms down/C5- T 5 1 Robins Simple 13422 IMRT Plan 01072 1 MLC Devices VMAT 37967 3 Robins 3 D 03664 TRTMT dev Complex 08946 7000 1 TRTMT dev [place] [address] [place] [address] 9 Special Dosimetry 21211 Spec Physics 91637 Port Films 79346 SRS Cranial/1FX 14438 SBR 5 FX or Less /ex: 5 = 5 fx 13694 IMRT Simple 38734 7000 35 IMRT Complex 42869 IGRT 26524 35 [facility] 6-10 [phone] [facility] 11-19 43632 Cont Med Physics 93473 7 Treatment Planning 26071 1 Weekly Evaluation 39394 7 Rad del com 20 mev 97644 Special Port Plan 88867 TRTMT dev inter 86039 Isodose Complex 07740 Isodose simple 78317 Resp Motion Mgmt Simulation 32137 Placement of Fiducial Markers 87162 Electronically Signed By: Jessee Alves MD, DABR 01/23/2025 8:26 AM
== END 2025-02-02 23:59 | disposition home or self-care (01) ==
LOC: SCTC 07:37
PROVIDERS: PCP Family Medicine; Referring Provider Family Medicine; Visit Provider Radiology Therapeutic Radiology
DX: C44.519 Basal cell carcinoma of skin of other part of trunk (principal)
CPT/HCPCS: 77470

== ENCOUNTER 2025-02-28 09:28 | Outpatient (RCR) | payer MEDICAID, SELFPAY ==
--- NOTE | 2025-02-08 09:42 | CTCSNOTE_ITS ---
[facility] [address] [place], [place] [address] CT Simulation Note Date: 02/08/2025 MR# [id number] Name: MARQUES SCHMID : 1960 (A) DIAGNOSIS: C44.519 Basal cell carcinoma of skin of other part of trunk (B) Patient was placed in supine position and used aquaplast for immobilization purposes. (C) CT slices included Head and neck (D) VMAT Will be needed for maximum sparing of adjacent normal critical structures. (E) Patient tolerated the simulation well and left the room in good condition. Electronically signed by: Jessee Alves MD, HORACE 02/08/2025 9:39 AM
== END 2025-03-04 23:59 | disposition home or self-care (01) ==
LOC: SCTC 09:28
PROVIDERS: PCP Family Medicine; Referring Provider Family Medicine; Visit Provider Radiology Therapeutic Radiology
DX: Z51.0 Encounter for antineoplastic radiation therapy (principal); C44.519 Basal cell carcinoma of skin of other part of trunk
CPT/HCPCS: 77014; 77290; 77300; 77301; 77334; 77336; 77338; 77385

== ENCOUNTER 2025-04-03 09:27 | Outpatient (RCR) | payer MEDICAID, SELFPAY ==
--- NOTE | 2025-03-05 11:05 | CTCTRTNOTE_ITS ---
[facility] [address] [place], [place] [address] Weekly Management Date: 03/05/2025 ?? Name: MARQUES SCHMID : 1960 A. Patient is currently at 3000 cGy. B. Patient is tolerating treatment well. C. Bleeding largely stopped. . D. Resume radiation therapy. Electronically signed by: Jessee Alves M.D. 03/05/2025 11:03 AM
== END 2025-04-04 23:59 | disposition home or self-care (01) ==
LOC: SCTC 09:27
PROVIDERS: PCP Family Medicine; Referring Provider Family Medicine; Visit Provider Radiology Therapeutic Radiology
DX: Z51.0 Encounter for antineoplastic radiation therapy (principal); C44.519 Basal cell carcinoma of skin of other part of trunk
CPT/HCPCS: 77336; 77385; 77407